=== PATIENT | female | born 1955 | race Caucasian/White ===

== ENCOUNTER 2020-10-04 09:31 | Outpatient (REF) | payer BC, SELFPAY ==
[2020-10-04 10:03] LABS: MANUAL DIFF FLAG NO
[2020-10-04 10:08] LABS: Basophils Percent Auto 0.8 % (0-2); Eosinophils Absolute Auto 0.2 X10*3/uL (0.0-0.4); Hematocrit 40.1 % (37-47); Hemoglobin 12.6 g/dl (12.0-16.0); Imm Gran Abs Auto 0.01 X10*3/uL (0.00-0.03); Imm Gran Pct Auto 0.2 % (0.0-0.4); Lymphocytes Absolute Auto 1.4 X10*3/uL (1.2-4.9); Lymphocytes Percent Auto 29.2 % (20-40); Mean Corpuscular HGB Conc 31.4 g/dl (31.0-35.0); Mean Corpuscular Hemoglobin 29.9 pg (27.0-33.0); Mean Platelet Volume 10.5 fL (9.4-12.3); Monocytes Absolute Auto 0.3 X10*3/uL (0.1-1.2); Monocytes Percent Auto 6.3 % (2-11); Neutrophils Percent Auto 60.5 % (45-73); Platelet Count 256 X10*3/uL (160-400); Red Blood Count 4.22 X10*6/uL (4.20-5.50); Red Cell Distribution Width 13.6 % (11.0-16.0); White Blood Count 4.9 X10*3/uL (4.8-10.8)
[2020-10-04 10:57] LABS: Alanine Aminotransferase 24 U/L (0-31); Albumin Level 4.6 g/dL (3.5-5.0); Alkaline Phosphatase 68 U/L (39-117); Anion Gap 11 (12-20); Aspartate Amino Transferase 21 U/L (5-31); Bilirubin Total 0.8 mg/dL (0.0-1.0); Blood Urea Nitrogen 12 mg/dL (9-16); Calcium 9.3 mg/dL (8.4-10.2); Carbon Dioxide 29 mmol/L (22-29); Chloride 106 mmol/L (96-108); Cholesterol 188 mg/dL; Estimated Glomerular Filt Rate > 60; Glucose Fasting 93 mg/dL (60-99); HDL Cholesterol 67 mg/dL; LDL Cholesterol Calculated 104 mg/dl; Potassium 4.3 mmol/l (3.3-5.1); Sodium 142 mmol/L (135-145); Total Protein 7.3 g/dL (6.5-8.0); Triglycerides 87 mg/dL
== END 2020-10-04 09:32 | disposition home or self-care (01) ==
LOC: HO.10HDL 09:31
PROVIDERS: Visit Provider Internal Medicine Medical Oncology
DX: Z00.00 Encounter for general adult medical examination without abnormal findings (principal)
CPT/HCPCS: 36415; 80053; 80061; 85025

== ENCOUNTER 2020-11-23 13:02 | Outpatient (REF) | payer BC, SELFPAY ==
--- NOTE | ~2020-11-23 | MM_ITS ---
EXAMINATION: MM SCREENING DIGITAL BREAST TOMOSYNTHESIS, BILATERAL CLINICAL INFORMATION: Screening. Asymptomatic. The lifetime risk of breast cancer based on the Tyrer-Cuzick Model is 14%. COMPARISON: Mammography: 11/11/2019, 09/24/2018 05/29/2012 TECHNIQUE: Digital breast tomosynthesis is performed in both the craniocaudal and mediolateral oblique views along with computer-aided detection (CAD). Synthesized 2D images are generated from the tomosynthesis. FINDINGS: The breasts are heterogeneously dense, which may obscure small masses (ACR BI-RADS breast composition Category c). The left breast is unremarkable. There is no interval mass or architectural abnormality. Neither breast shows abnormal calcifications. The bilateral axilla and skin contours are unremarkable. Right MLO view has 1 cm nodular asymmetric density anterior lower breast 4 cm from nipple. There is no correlate on CC view and this could represent summation artifact. Patient will be recalled for additional imaging. The remainder of the right breast is unremarkable. Parenchymal asymmetry posterior central right breast on CC view is stable from 2011. MM/MM tomosynthesis screening BI IMPRESSION: 1. Right: 1 cm nodular asymmetric density lower anterior breast on MLO view. 2. Left: No mammographic evidence of malignancy. ASSESSMENT: BI-RADS 0: Incomplete - Need Additional Imaging Evaluation RECOMMENDATION: 1. Additional views of the right breast (3-D spot MLO, 3-D ML). 2. Targeted ultrasound if warranted after review of the additional views. 3. Radiology department staff will contact the patient for additional imaging. This patient's information was entered into a reminder system with a target due date for their next mammogram.
--- NOTE | ~2020-11-23 | MM_ITS ---
EXAMINATION: BONE DENSITOMETRY CLINICAL INDICATION: Osteoporosis. COMPARISON: Baseline BD dated 10/09/2018. TECHNIQUE: Using a [employer] DXA System (software version: 13.1) manufactured by [employer], dual-energy x-ray absorptiometry was performed of the lumbar spine and left hip. The images are of good technical quality. Summary results are attached. FINDINGS: AP SPINE L1-L4: Current: BMD 1.126 g/cm2, Z-score 0.8, T-score -0.5, normal, 4.9% decrease from baseline (<5% change is not significant). Baseline: BMD 1.184 g/cm2. LEFT FEMUR, NECK: Current: BMD 1.198 g/cm2, Z-score 2.4, T-score 1.2, normal. Baseline: BMD 1.210 g/cm2. LEFT FEMUR, TOTAL: Current: BMD 1.236 g/cm2, Z-score 2.8, T-score 1.8, normal, 1.9% decrease from baseline (<5% change is not significant). Baseline: BMD 1.260 g/cm2. IDENTIFIED RISK FACTORS: Menopause. HISTORY OF FRACTURE: None listed. MEDICATIONS: None listed. MM/XR DEXA axial skeleton IMPRESSION: 1. DIAGNOSIS: Normal bone density based on the lowest T-score value of -0.5 in the lumbar spine applying World Health Organization criteria. 2. 10-YEAR FRACTURE RISK PREDICTION, FRAX: Major osteoporotic fracture (clinical spine, forearm, hip or shoulder) 5.5%. Hip fracture 0.1%. 3. Treatment Recommendations: NOF guidelines recommend consideration for treatment in postmenopausal women and men age 50 and older presenting with the following: -A hip or vertebral (clinical or morphometric) fracture. -T-score less than or equal to -2.5 at the femoral neck or spine after appropriate evaluation to exclude secondary causes. -Low bone mass at the hip or spine and a 10-year fracture probability by FRAX of greater than or equal to 3% for hip fracture or greater than or equal to 20% for major osteoporotic fracture based on the [place] adapted WHO algorithm. 4. Other Recommendations: All treatment decisions require clinical judgment and consideration of individual patient factors, including patient preferences, comorbidities, previous drug use, risk factors not captured in the FRAX model (e.g. frailty, falls, vitamin D deficiency, increased bone turnover, interval significant decline in bone density) and possible under or overestimation of fracture risk by FRAX. FUTURE SCAN RECOMMENDATION: People with diagnosed cases of osteoporosis or at high risk for fracture should have regular bone mineral density tests. For patients eligible for Medicare, routine testing is allowed once every 2 years. The testing frequency can be increased to one year for patients who have rapidly progressing disease, those who are receiving or discontinuing medical therapy to restore bone mass, or have additional risk factors.
== END 2020-11-23 13:03 | disposition home or self-care (01) ==
LOC: HO.MAMMO 13:02
PROVIDERS: PCP Internal Medicine Medical Oncology; Visit Provider Obstetrics & Gynecology
DX: Z13.820 Encounter for screening for osteoporosis (principal); Z78.0 Asymptomatic menopausal state; Z12.31 Encounter for screening mammogram for malignant neoplasm of breast
CPT/HCPCS: 77063; 77067; 77080

== ENCOUNTER 2020-11-28 15:47 | Outpatient (REF) | payer BC, SELFPAY | END 2020-11-28 15:48 | disposition home or self-care (01) | LOC: HO.MAMMO 15:47 | PROVIDERS: PCP Internal Medicine Medical Oncology; Visit Provider Obstetrics & Gynecology | DX: Z13.89 Encounter for screening for other disorder (principal) ==

== ENCOUNTER 2020-12-01 10:29 | Outpatient (REF) | payer BC, SELFPAY ==
--- NOTE | ~2020-12-01 | MM_ITS ---
EXAMINATION: MM DIAGNOSTIC DIGITAL BREAST TOMOSYNTHESIS, RIGHT Targeted right breast ultrasound. CLINICAL INFORMATION: Nodular density lower anterior right breast COMPARISON: Mammography: November 23, 2020 and studies dating back to May 18, 2010 TECHNIQUE: Digital breast tomosynthesis is performed. 2D images are generated from the tomosynthesis. The following views are obtained: 90 degree mediolateral view as well as spot compression mediolateral oblique view. FINDINGS: The breasts are heterogeneously dense, which may obscure small masses (ACR BI-RADS breast composition Category c). Supplementary views demonstrate the questioned nodular density have a similar appearance to multiple previous studies dating back to May 18, 2010. Spot compression view effaces about the questioned circumscribed density. Targeted right breast ultrasound did not demonstrate any abnormal cystic or solid mass. No region of abnormal distal sound shadowing identified. No edematous change within the breast tissue seen. Results are provided to the patient at time of visit by the technologist. MM/MM tomosynthesis added views R IMPRESSION: No specific mammographic or ultrasound evidence to suggest malignancy. ASSESSMENT: BI-RADS 1: Negative RECOMMENDATION: Routine annual mammography screening due in 12 months. This patient's information was entered into a reminder system with a target due date for their next mammogram.
--- NOTE | ~2020-12-01 | US_ITS ---
EXAMINATION: US DIAGNOSTIC ULTRASOUND BREAST, RIGHT CLINICAL INFORMATION: Nodular density. COMPARISON: December 01, 2020 and studies dating back to May 18, 2010.. TECHNIQUE: Ultrasound of the breast is performed with real-time buckner scale imaging and color Doppler. FINDINGS: Targeted right breast ultrasound did not demonstrate any abnormal cystic or solid mass. No region of abnormal distal sound shadowing identified. No edematous change within the breast tissue seen. Results are provided to the patient at time of visit by the technologist. US/US breast RT limited IMPRESSION: No specific mammographic or ultrasound evidence to suggest malignancy. ASSESSMENT: BI-RADS 1: Negative RECOMMENDATION: Routine annual mammography screening due in 12 months.
== END 2020-12-01 10:30 | disposition home or self-care (01) ==
LOC: HO.MAMMO 10:29
PROVIDERS: Visit Provider Obstetrics & Gynecology
DX: R92.2 Inconclusive mammogram (principal)
CPT/HCPCS: 76642; 77061; 77065

== ENCOUNTER → 2020-12-27 14:50 | Outpatient (BNVA) | payer BC, SELFPAY | PROVIDERS: Visit Provider Obstetrics & Gynecology ==

== ENCOUNTER 2021-10-16 10:13 | Outpatient (REF) | payer BC, SELFPAY ==
[2021-10-16 10:47] LABS: MANUAL DIFF FLAG NO
[2021-10-16 11:02] LABS: Basophils Percent Auto 0.8 % (0-2); Eosinophils Absolute Auto 0.1 X10*3/uL (0.0-0.4); Eosinophils Percent Auto 2.8 % (0-4); Hematocrit 41.1 % (37.0-47.0); Hemoglobin 13.1 g/dl (12.0-16.0); Imm Gran Abs Auto 0.01 X10*3/uL (0.00-0.03); Imm Gran Pct Auto 0.2 % (0.0-0.4); Lymphocytes Absolute Auto 1.6 X10*3/uL (1.2-4.9); Lymphocytes Percent Auto 32.5 % (20-40); Mean Corpuscular HGB Conc 31.9 g/dl (31.0-35.0); Mean Corpuscular Hemoglobin 30.2 pg (27.0-33.0); Mean Corpuscular Volume 94.7 fL (80.0-98.0); Mean Platelet Volume 10.1 fL (9.4-12.3); Monocytes Absolute Auto 0.3 X10*3/uL (0.1-1.2); Monocytes Percent Auto 5.3 % (2-11); Neutrophils Absolute Auto 2.9 x10*3/uL (2.0-8.3); Neutrophils Percent Auto 58.4 % (45-73); Platelet Count 222 X10*3/uL (160-400); Red Blood Count 4.34 X10*6/uL (4.20-5.50); Red Cell Distribution Width 14.3 % (11.0-16.0); White Blood Count 4.9 X10*3/uL (4.8-10.8)
[2021-10-16 11:37] LABS: Alanine Aminotransferase 17 U/L (0-31); Albumin Level 4.3 g/dL (3.5-5.0); Alkaline Phosphatase 67 U/L (39-117); Anion Gap 11 (12-20); Aspartate Amino Transferase 21 U/L (5-31); Bilirubin Total 0.8 mg/dL (0.0-1.0); Blood Urea Nitrogen 16 mg/dL (9-16); Calcium 9.6 mg/dL (8.4-10.2); Carbon Dioxide 26 mmol/L (22-29); Chloride 109 mmol/L (96-108); Cholesterol 187 mg/dL; Estimated Glomerular Filt Rate > 60; Glucose Fasting 83 mg/dL (60-99); HDL Cholesterol 60 mg/dL; LDL Cholesterol Calculated 116 mg/dl; Potassium 4.2 mmol/L (3.3-5.1); Sodium 142 mmol/L (135-145); Total Protein 7.3 g/dL (6.5-8.0); Triglycerides 55 mg/dL
== END 2021-10-16 10:14 | disposition home or self-care (01) ==
LOC: HO.LAB 10:13
PROVIDERS: PCP Internal Medicine Medical Oncology; Visit Provider Internal Medicine Medical Oncology
DX: Z00.00 Encounter for general adult medical examination without abnormal findings (principal); E66.3 Overweight
CPT/HCPCS: 36415; 80053; 80061; 85025

== ENCOUNTER 2021-11-24 13:07 | Outpatient (REF) | payer BC, SELFPAY ==
--- NOTE | ~2021-11-24 | MM_ITS ---
EXAMINATION: MM SCREENING DIGITAL BREAST TOMOSYNTHESIS, BILATERAL CLINICAL INFORMATION: Screening. Asymptomatic. The lifetime risk of breast cancer based on the Tyrer-Cuzick Model is 15%. COMPARISON: Mammography: 12/01/2020, 11/23/2020, 11/11/2019, 09/24/2018, 05/29/2012, ultrasound right breast 12/01/2020 TECHNIQUE: Digital breast tomosynthesis is performed in both the craniocaudal and mediolateral oblique views along with computer-aided detection (CAD). Synthesized 2D images are generated from the tomosynthesis. FINDINGS: The breasts are heterogeneously dense, which may obscure small masses (ACR BI-RADS breast composition Category c). There are no significant masses, abnormal calcifications, or other abnormalities. Parenchymal pattern is similar to prior studies. Scattered bilateral asymmetries are stable. There is no developing density or architectural abnormality. The axilla and skin contours are unremarkable. No significant changes. MM/MM tomosynthesis screening BI IMPRESSION: No significant changes from prior studies. ASSESSMENT: BI-RADS 2: Benign RECOMMENDATION: Routine annual mammography screening. This patient's information was entered into a reminder system with a target due date for their next mammogram.
== END 2021-11-24 13:08 | disposition home or self-care (01) ==
LOC: HO.MAMMO 13:07
PROVIDERS: PCP Internal Medicine Medical Oncology; Visit Provider Internal Medicine Medical Oncology
DX: Z12.31 Encounter for screening mammogram for malignant neoplasm of breast (principal)
CPT/HCPCS: 77063; 77067

== ENCOUNTER → 2022-02-09 09:45 | Outpatient (BNVA) | payer BC, SELFPAY | PROVIDERS: PCP Internal Medicine Medical Oncology; Visit Provider Advanced Practice Midwife | DX: Z01.419 Encounter for gynecological examination (general) (routine) without abnormal findings (principal) ==

== ENCOUNTER 2022-03-30 09:01 | Day surgery (SDC) | payer BC, SELFPAY ==
[2022-03-26 15:44] VITALS: BMI 26.1
--- NOTE | 2022-03-29 13:55 | HO.ANESPROP2 ---
Documented by User: Sandra Elliott NP 03/29/22 13:56 HPI - Anesthesia Eval Consult details Narrative: 66yo F for Colonoscopy PMFSH Active Problems Active Problems: All Active Problems (Updated 03/26/22 @ 15:36 by Willa Oropeza, LYRIC) Osteopenia (Acute) Past Medical History Medical History Heart burn Seasonal allergies Family History Family History Father Heart attack Mother Breast cancer Uterine cancer Maternal Aunt Breast cancer Maternal Aunt Colon cancer Surgical History Surgical History History of ERCP Hx of section Hx of cholecystectomy Hx of colonoscopy Hx of dilation and curettage Social History Social History Household Members: Spouse Housing: House Alcohol intake: never Patient Tobacco Use Status: Former Tobacco user Quit Date: 34 years ago Tobacco use type: Cigarette Use of substances other than those prescribed or required for medical reasons: No Are you DNR?: No Advance Directives: No Advance Directives Information Provided: Yes Sexual orientation: Straight/Heterosexual Gender identity: Female Meds Allergies Allergy/AdvReac Type Severity Reaction Status Date / Time amoxicillin [Amoxicillin] Allergy Intermediate HIVES Verified 03/26/22 15:37 Sulfa (Sulfonamide Allergy Unknown RASH, Verified 03/26/22 15:37 Antibiotics) fever, rash Home Medications Medication Instructions Recorded Confirmed Last Taken Type multivitamin 1 tab PO DAILY 02/09/22 03/26/22 Unknown History Exam Exam Date and Time: March 29, 2022 1355 Height,Weight and Vital Signs: Height 5 ft 5 in Weight 71.214 kg Pertinent Lab Results Pertinent Lab Results: Laboratory Tests 10/16/21 10/16/21 10:45 10:45 WBC 4.9 Hgb 13.1 Hct 41.1 Plt Count 222 Sodium 142 Potassium 4.2 Chloride 109 H Carbon Dioxide 26 BUN 16 Creatinine 0.76 Assessment and Plan Assessment Anesthesia Assessment: Chart Reviewed Documented by User: Nayan Keith MD 03/30/22 10:57 PMF Past Medical History Medical History Heart burn Seasonal allergies Family History Family History Father Heart attack Mother Breast cancer Uterine cancer Maternal Aunt Breast cancer Maternal Aunt Colon cancer Family history of problems with anesthesia: No Surgical History Surgical History History of ERCP Hx of section Hx of cholecystectomy Hx of colonoscopy Hx of dilation and curettage History of Problems with Anesthesia: No Social History Social History Household Members: Spouse Housing: House Alcohol intake: never Patient Tobacco Use Status: Former Tobacco user Quit Date: 34 years ago Tobacco use type: Cigarette Use of substances other than those prescribed or required for medical reasons: No Are you DNR?: No Advance Directives: No Advance Directives Information Provided: Yes Sexual orientation: Straight/Heterosexual Gender identity: Female Meds Allergies Allergy/AdvReac Type Severity Reaction Status Date / Time amoxicillin [Amoxicillin] Allergy Intermediate HIVES Verified 03/26/22 15:37 Sulfa (Sulfonamide Allergy Unknown RASH, Verified 03/26/22 15:37 Antibiotics) fever, rash Home Medications Medication Instructions Recorded Confirmed Last Taken Type multivitamin 1 tab PO DAILY 02/09/22 03/26/22 Unknown History Exam Airway Mallampati Class: II TM Dist: >3cm Neck ROM: Full Loose/Missing/Broken Teeth: No Heart: rrr Lungs: clear Assessment and Plan Final Anesthetic Review Family History of Problems with Anesthesia: No History of Problems with Anesthesia: No NPO: Yes ASA Class: II Final Preanesthetic Review: No Changes in Pt Med Stat, Consent Obtained/Reviewed and Anes Risks/Benef Reviewed Procedure Risk: Low Anesthetic Plan Anesthetic Plan: MAC: Disposition: Standard PACU
[2022-03-30 09:49] VITALS: BMI 25.0
[2022-03-30 10:07] VITALS: BP 151/78; PULSE 74; RESP 17; TEMP 36.8; O2SAT 100
[2022-03-30] MEDS: Lactated Ringers 1,000 ML 100 ML IVCONT (10:21)
[2022-03-30 11:53] VITALS: BP 128/64; PULSE 67; RESP 18; TEMP 36.9; O2SAT 99
--- NOTE | 2022-03-30 11:53 | P.BOP_ITS ---
Brief Operative Note Date of Service: 03/30/22 Pre-op diagnosis: Screening Post-op diagnosis: other (Diverticulosis) Procedure: Colonoscopy to the cecum and TI Surgeon: Yung Chavez Anesthesia: MAC Was an Senior Living Advisor used for this Procedure?: No Estimated blood loss (mL): 0 Pathology: none sent Condition: stable Disposition: PACU
[2022-03-30 12:08] VITALS: BP 141/65; PULSE 61; RESP 18; TEMP 37; O2SAT 98
--- NOTE | 2022-04-09 16:29 | OP_ITS ---
SURGEON: Yung Chavez MD INDICATIONS: The patient presents for evaluation of colorectal cancer screening. Full consent obtained for this, including risks of bleeding and perforation. PREOPERATIVE DIAGNOSIS: Colorectal cancer screening. POSTOPERATIVE DIAGNOSIS: Colorectal cancer screening. Mild sigmoid diverticulosis, small internal hemorrhoids. PROCEDURE PERFORMED: ESTIMATED BLOOD LOSS: COMPLICATIONS: ANESTHESIA: Monitored anesthesia care. ASSISTANTS: SPECIMENS: PROCEDURES: Colonoscopy to cecum and terminal ileum. DESCRIPTION OF PROCEDURE: The patient was placed in the left lateral decubitus position. The digital rectal exam revealed no abnormalities. The Olympus video pediatric colonoscope was entered into the rectum and advanced easily to the cecum. Once in the cecum, I did identify normal-appearing cecal pouch with appendiceal orifice and a normal-appearing ileocecal valve. The terminal ileum was cannulated and appeared normal. Scope was withdrawn back in the colon. The entire cecum and ileocecal valve appeared normal. The scope was slowly withdrawn assessing all mucosal surfaces carefully. Preparation was excellent. I did not visualize any sign of polyps, colitis, nor angiodysplasia. There was a mild amount of sigmoid diverticulosis. In the rectum, scope was retroflexed visualizing small internal hemorrhoids, but no other pathology. The rectal mucosa appeared normal. Scope was straightened and withdrawn from the patient. She tolerated the procedure well and was returned to recovery area in stable condition. IMPRESSION: 1. Mild sigmoid diverticulosis. 2. Internal hemorrhoids. PLAN: Given the negative exam and no first-degree relatives with colorectal cancer, I recommended a followup colonoscopy in 10 years for further screening. She will otherwise see me on a p.r.n. basis. MD NOHEMY Wheeler/KODYL / [id number]
== END 2022-03-30 12:51 | disposition home or self-care (01) ==
PROVIDERS: PCP Internal Medicine Medical Oncology; Visit Provider Internal Medicine
PROC: 0DJD8ZZ Inspection of Lower Intestinal Tract, Via Natural or Artificial Opening Endoscopic (ICD-10-PCS; CPT 45378; principal; 2022-03-30 10:20)
DX: Z12.11 Encounter for screening for malignant neoplasm of colon (principal); K57.30 Diverticulosis of large intestine without perforation or abscess without bleeding; K64.8 Other hemorrhoids; Z90.49 Acquired absence of other specified parts of digestive tract; Z88.2 Allergy status to sulfonamides; Z87.891 Personal history of nicotine dependence
CPT/HCPCS: 45378

== ENCOUNTER 2022-10-16 09:51 | Outpatient (REF) | payer BC, SELFPAY ==
[2022-10-16 10:31] LABS: MANUAL DIFF FLAG NO
[2022-10-16 10:34] LABS: Basophils Percent Auto 0.8 % (0-2); Eosinophils Absolute Auto 0.2 X10*3/uL (0.0-0.4); Eosinophils Percent Auto 3.5 % (0-4); Hematocrit 40.9 % (37.0-47.0); Hemoglobin 13.5 g/dl (12.0-16.0); Imm Gran Abs Auto 0.02 X10*3/uL (0.00-0.03); Imm Gran Pct Auto 0.4 % (0.0-0.4); Lymphocytes Absolute Auto 1.9 X10*3/uL (1.2-4.9); Lymphocytes Percent Auto 37.4 % (20-40); Mean Corpuscular Hemoglobin 31.2 pg (27.0-33.0); Mean Corpuscular Volume 94.5 fL (80.0-98.0); Mean Platelet Volume 10.3 fL (9.4-12.3); Monocytes Absolute Auto 0.3 X10*3/uL (0.1-1.2); Monocytes Percent Auto 5.6 % (2-11); Neutrophils Absolute Auto 2.7 x10*3/uL (2.0-8.3); Neutrophils Percent Auto 52.3 % (45-73); Platelet Count 254 X10*3/uL (160-400); Red Blood Count 4.33 X10*6/uL (4.20-5.50); Red Cell Distribution Width 13.8 % (11.0-16.0); White Blood Count 5.1 X10*3/uL (4.8-10.8)
[2022-10-16 12:20] LABS: Alanine Aminotransferase 20 U/L (0-31); Albumin Level 4.3 g/dL (3.5-5.0); Alkaline Phosphatase 66 U/L (39-117); Anion Gap 14 (12-20); Aspartate Amino Transferase 21 U/L (5-31); Bilirubin Total 1.2 mg/dL (0.0-1.0); Blood Urea Nitrogen 14 mg/dL (9-16); Calcium 9.2 mg/dL (8.4-10.2); Carbon Dioxide 23 mmol/L (22-29); Chloride 108 mmol/L (96-108); Cholesterol 198 mg/dL; Estimated Glomerular Filt Rate > 60; Glucose Fasting 88 mg/dL (60-99); HDL Cholesterol 60 mg/dL; LDL Cholesterol Calculated 118 mg/dl; Sodium 141 mmol/L (135-145); Triglycerides 101 mg/dL
== END 2022-10-16 09:52 | disposition home or self-care (01) ==
LOC: HO.10HDL 09:51
PROVIDERS: Visit Provider Internal Medicine Medical Oncology
DX: Z00.00 Encounter for general adult medical examination without abnormal findings (principal); E66.3 Overweight
CPT/HCPCS: 36415; 80053; 80061; 85025

== ENCOUNTER 2022-12-21 10:12 | Outpatient (REF) | payer MEDICARE, SELFPAY ==
--- NOTE | ~2022-12-21 | MM_ITS ---
EXAMINATION: MM SCREENING DIGITAL BREAST TOMOSYNTHESIS, BILATERAL CLINICAL INFORMATION: Screening. Asymptomatic. The lifetime risk of breast cancer based on the Tyrer-Cuzick Model is 8%. COMPARISON: Mammography: 11/24/2021, 12/01/2020, 11/23/2020, 11/11/2019; ultrasound right breast 12/01/2020. TECHNIQUE: Digital breast tomosynthesis is performed in both the craniocaudal and mediolateral oblique views along with computer-aided detection (CAD). Synthesized 2D images are generated from the tomosynthesis. FINDINGS: The breasts are heterogeneously dense, which may obscure small masses (ACR BI-RADS breast composition Category c). There are no significant masses, abnormal calcifications, or other abnormalities. Parenchymal pattern is similar to prior exams and there is no developing density or architectural abnormality. The axilla are unremarkable. The skin contours are smooth. No significant changes from prior exams. MM/MM tomosynthesis screening BI IMPRESSION: No mammographic evidence of malignancy. ASSESSMENT: BI-RADS 1: Negative RECOMMENDATION: Routine annual mammography screening. This patient's information was entered into a reminder system with a target due date for their next mammogram.
== END 2022-12-21 10:13 | disposition home or self-care (01) ==
LOC: HO.MAMMO 10:12
PROVIDERS: PCP Internal Medicine Medical Oncology; Visit Provider Internal Medicine Medical Oncology
DX: Z12.31 Encounter for screening mammogram for malignant neoplasm of breast (principal)
CPT/HCPCS: 77063; 77067

== ENCOUNTER 2023-02-28 11:32 | Outpatient (REF) | payer MEDICARE, SELFPAY ==
[2023-03-05 10:13] LABS: HPV mRNA E6/E7 rflx Not Detected (Not Detected)
== END 2023-02-28 11:33 | disposition home or self-care (01) ==
LOC: HO.LNP 11:32
PROVIDERS: PCP Internal Medicine Medical Oncology; Visit Provider Advanced Practice Midwife
DX: Z01.419 Encounter for gynecological examination (general) (routine) without abnormal findings (principal); N95.1 Menopausal and female climacteric states; N89.8 Other specified noninflammatory disorders of vagina
CPT/HCPCS: 87624; 88142; G0101

== ENCOUNTER 2023-10-21 09:39 | Outpatient (REF) | payer MEDICARE, SELFPAY ==
[2023-10-21 12:03] LABS: MANUAL DIFF FLAG NO
[2023-10-21 12:16] LABS: Basophils Percent Auto 0.7 % (0-2); Eosinophils Absolute Auto 0.1 X10*3/uL (0.0-0.4); Eosinophils Percent Auto 2.4 % (0-4); Hemoglobin 13.9 g/dl (12.0-16.0); Imm Gran Abs Auto 0.02 X10*3/uL (0.00-0.03); Imm Gran Pct Auto 0.3 % (0.0-0.4); Lymphocytes Absolute Auto 2.3 X10*3/uL (1.2-4.9); Lymphocytes Percent Auto 38.4 % (20-40); Mean Corpuscular HGB Conc 33.1 g/dl (31.0-35.0); Mean Corpuscular Hemoglobin 31.7 pg (27.0-33.0); Mean Corpuscular Volume 95.9 fL (80.0-98.0); Monocytes Absolute Auto 0.4 X10*3/uL (0.1-1.2); Monocytes Percent Auto 5.9 % (2-11); Neutrophils Absolute Auto 3.1 x10*3/uL (2.0-8.3); Neutrophils Percent Auto 52.3 % (45-73); Platelet Count 266 X10*3/uL (160-400); Red Blood Count 4.38 X10*6/uL (4.20-5.50); Red Cell Distribution Width 13.6 % (11.0-16.0); White Blood Count 5.9 X10*3/uL (4.8-10.8)
[2023-10-21 12:30] LABS: Alanine Aminotransferase 23 U/L (0-31); Albumin Level 4.4 g/dL (3.5-5.0); Alkaline Phosphatase 63 U/L (39-117); Anion Gap 12 (12-20); Aspartate Amino Transferase 23 U/L (5-31); Bilirubin Total 1.1 mg/dL (0.0-1.0); Blood Urea Nitrogen 12 mg/dL (9-16); Calcium 9.5 mg/dL (8.4-10.2); Carbon Dioxide 28 mmol/L (22-29); Chloride 106 mmol/L (96-108); Cholesterol 192 mg/dL (<200); Estimated Glomerular Filt Rate > 60; Glucose Fasting 93 mg/dL (60-99); HDL Cholesterol 63 mg/dL (>40); LDL Cholesterol Calculated 113 mg/dL (<100); Potassium 3.9 mmol/L (3.3-5.1); Sodium 142 mmol/L (135-145); Total Protein 7.3 g/dL (6.5-8.0); Triglycerides 84 mg/dL (<150)
== END 2023-10-21 09:40 | disposition home or self-care (01) ==
LOC: HO.10HDL 09:39
PROVIDERS: Visit Provider Internal Medicine Medical Oncology
DX: E66.3 Overweight (principal)
CPT/HCPCS: 36415; 80053; 80061; 85025

== ENCOUNTER 2023-11-15 10:00 | Outpatient (AMB) | payer MEDICARE, SELFPAY ==
--- NOTE | 2023-11-15 10:11 | A.OFFVIS_ITS ---
Intake Vital Signs 11/15/23 10:17 Height 5 ft 5 in Weight 158 lb BMI 26.3 Intake Visit Reasons: New Pt - Right Knee Pain Intake Note: Tory mercado 67 year old female presents today as a new patient for an evaluation of right knee pain. Patient reports pain present for a while, states previously seen before the pandemic and was referred to PT. Currently intermittent pain that will wake her up middle of night. Finds relief with massaging of knee area. States her pain is tolerable, however concerned of why she is having this discomfort. Allergies amoxicillin [Amoxicillin] Allergy (Intermediate, Verified 11/15/23 10:21) HIVES Sulfa (Sulfonamide Antibiotics) Allergy (Unknown, Verified 11/15/23 10:21) RASH, fever, rash HPI New Pt - Right Knee Pain HPI Details 67-year-old female who presents to the [facility] today for evaluation of right knee pain. She was previously seen for her pain where she was referred to our office. She currently states she has discomfort and tolerable intermittent pain in her knee which wakes her up in the middle of the night. Her pain is aggravated with moving up and down a steep hill. She finds relief with knee massages. [facility] Medical History Heart burn Seasonal allergies Surgical History History of ERCP Hx of colonoscopy Hx of dilation and curettage Hx of section Hx of cholecystectomy Family History Father Heart attack Mother Breast cancer Uterine cancer Maternal Aunt Breast cancer Maternal Aunt Colon cancer Social History Household Members: Spouse Housing: House Alcohol intake: never Patient Tobacco Use Status: Former Tobacco user Quit Date: 34 years ago Tobacco use type: Cigarette Sexual orientation: Straight/Heterosexual Gender identity: Female Review of Systems Const All systems reviewed & are unremarkable except as noted in HPI and below Physical Exam Vital Signs: BMI result Body Mass Index 26.3 Const General: cooperative, healthy appearing, comfortable, no acute distress, well developed and alert Orientation/consciousness: patient oriented x3 HEENT Head: Yes normal to inspection, Yes normocephalic and Yes atraumatic Eyes General: appearance normal, both eyes and all related structures Resp Effort & Inspection: normal respiratory effort and able to speak in complete sentences Cardio Rate: regular rate Peripheral pulses: Peripheral pulses 2+ throughout GI Palpation (GI): Soft to palpation Skin Lesions: no lesions Rashes: no rashes Neuro General: patient oriented x3 Extrem Other: Right knee: Skin intact, no erythema or joint effusion. Tenderness along the medial and lateral joint line. Full ROM with crepitus. Negative Gustavo?s. No ligamentous laxity. NVI. Results Reviewed Results Reviewed: Xrays were obtained in the office today and personally reviewed by me of the right knee show medial compartment oa Assessment & Plan Assessment & Plan (1) Patellofemoral arthralgia of right knee: Code(s): M25.561 - Pain in right knee (2) Osteoarthritis of right knee: Code(s): M17.11 - Unilateral primary osteoarthritis, right knee Qualifiers: Osteoarthritis type: primary Qualified Code(s): M17.11 - Unilateral primary osteoarthritis, right knee Plan We discussed options which include PT, NSAIDs and injections. The patient will defer on the injection today and proceed with PT and NSAIDs. If symptoms persist, the patient will contact me for an injection, otherwise, PRN. Orders: Orders XR knee standing BI Today M25.561 - Pain in right knee, M25.562 - Pain in left knee PT Evaluation and Treatment Today M17.11 - Unilateral primary osteoarthritis, right knee, M25.561 - Pain in right knee XR knee RT 2V Today M25.569 - Pain in unspecified knee Patient Instructions: Scribed for Rojas Martinez PA-C, by Scottie Villanueva front office medical assistant, on 11/15/2023 at 10:00 AM EST. I, Rojas Martinez PA-C, have personally reviewed and agree with the information entered by the scribe. Coding Level of Care Code New Pt Level 3 (41022) Diagnoses Patellofemoral arthralgia of right knee M25.561 Primary osteoarthritis of right knee M17.11 Osteoarthritis type: primary
[2023-11-15 10:17] VITALS: BMI 26.3
== END 2023-11-15 10:32 | disposition home or self-care (01) ==
PROVIDERS: PCP Internal Medicine Medical Oncology; Visit Provider Physician Assistant
DX: M25.561 Pain in right knee (principal); M17.11 Unilateral primary osteoarthritis, right knee
CPT/HCPCS: 99203

== ENCOUNTER 2023-11-15 16:07 | Outpatient (REF) | payer MEDICARE, SELFPAY ==
--- NOTE | ~2023-11-15 | XR_ITS ---
EXAMINATION: XR KNEE AP STANDING, BILATERAL XR KNEE, RIGHT CLINICAL INFORMATION: Pain in right knee. COMPARISON: 11/04/2019 AP view of bilateral knees, four views left knee. TECHNIQUE: AP standing view of bilateral knees. Lateral and sunrise views of the right knee. FINDINGS: LEFT KNEE: Moderate medial joint space narrowing. Small medial and lateral marginal osteophytes. RIGHT KNEE: No significant joint effusion. Small tricompartmental osteophytes. Moderate to marked medial joint space narrowing. XR/XR knee RT 2V IMPRESSION: Degenerative changes in the bilateral knees, right greater than left.
--- NOTE | ~2023-11-15 | XR_ITS ---
EXAMINATION: XR KNEE AP STANDING, BILATERAL XR KNEE, RIGHT CLINICAL INFORMATION: Pain in right knee. COMPARISON: 11/04/2019 AP view of bilateral knees, four views left knee. TECHNIQUE: AP standing view of bilateral knees. Lateral and sunrise views of the right knee. FINDINGS: LEFT KNEE: Moderate medial joint space narrowing. Small medial and lateral marginal osteophytes. RIGHT KNEE: No significant joint effusion. Small tricompartmental osteophytes. Moderate to marked medial joint space narrowing. XR/XR knee standing BI IMPRESSION: Degenerative changes in the bilateral knees, right greater than left.
== END 2023-11-15 16:08 | disposition home or self-care (01) ==
LOC: HO.HOSX 16:07
PROVIDERS: Visit Provider Physician Assistant
DX: M17.11 Unilateral primary osteoarthritis, right knee (principal); M25.562 Pain in left knee
CPT/HCPCS: 73560; 73565; 99202

== ENCOUNTER 2023-12-24 10:40 | Outpatient (REF) | payer MEDICARE, SELFPAY ==
--- NOTE | ~2023-12-24 | MM_ITS ---
EXAMINATION: MM SCREENING DIGITAL BREAST TOMOSYNTHESIS, BILATERAL CLINICAL INFORMATION: Screening. Asymptomatic. COMPARISON: Mammography: This study is compared with prior exams dating back to 2019. TECHNIQUE: Digital breast tomosynthesis is performed in both the craniocaudal and mediolateral oblique views along with computer-aided detection (CAD). Synthesized 2D images are generated from the tomosynthesis. FINDINGS: The breasts are heterogeneously dense, which may obscure small masses (ACR BI-RADS breast composition Category c). In the central portion of the left breast, there is a focal asymmetry which warrants additional mammographic and targeted sonographic imaging. In the right breast, there are no significant masses, abnormal calcifications, or other abnormalities. MM/MM tomosynthesis screening BI IMPRESSION: Focal asymmetry of the left breast warrants additional mammographic and targeted sonographic imaging. No mammographic signs of malignancy right breast. ASSESSMENT: BI-RADS BI-RADS 0 - Incomplete: Needs additional Imaging. RECOMMENDATION: 1. Additional views of the left breast 2. Targeted ultrasound if warranted after review of the additional views. 3. Radiology department staff will contact the patient for additional imaging. Additional Imaging required This examination should not preclude the clinical evaluation of a suspicious palpable abnormality. This patient's information was entered into a reminder system with a target due date for their next mammogram.
== END 2023-12-24 10:41 | disposition home or self-care (01) ==
LOC: HO.MAMMO 10:40
PROVIDERS: PCP Internal Medicine Medical Oncology; Visit Provider Internal Medicine Medical Oncology
DX: Z12.31 Encounter for screening mammogram for malignant neoplasm of breast (principal)
CPT/HCPCS: 77063; 77067

== ENCOUNTER → 2023-12-24 10:45 | Outpatient (BNV) | payer MEDICARE, SELFPAY | PROVIDERS: PCP Internal Medicine Medical Oncology; Visit Provider Radiology Diagnostic Radiology | DX: Z12.31 Encounter for screening mammogram for malignant neoplasm of breast (principal) | CPT/HCPCS: 77063; 77067 ==

== ENCOUNTER 2024-01-08 13:00 | Outpatient (RCR) | payer MEDICARE, SELFPAY ==
--- NOTE | 2023-12-06 16:17 | MHC.PT.EP ---
[facility] [place] [facility] [place] [facility] [place] Office [address] [phone] F: [phone] F: [phone] F: [phone] F: [phone] Physical Therapy Plan of Care Date of Evaluation: 12/06/23 Date of Surgery: Diagnosis: RIGHT knee pain, knee osteoarthritis Assessment: Patient is a pleasant 67 y.o. female who is referred to PT by Rojas Martinez PA-C with Dx of RIGHT knee pain and osteoarthritis. Medial knee OA moderate confirmed on x-ray imaging. Patient impairments include pain, slightly limited ROM, weakness in hip and knee and antalgic gait. Patient current functional limitations are walking down hills, descending stairs, getting up/down from floor, kneeling, gardening. Patient will benefit from skilled PT to address aforementioned impairments and functional limitations to meet established goals. Frequency and Duration: The patient will be seen 2x/week for 4 weeks Short Term Goals: 2 weeks Patient demonstrates consistency and independence with HEP to self manage symptoms. Radiology Ct Technologist Goals: 4 weeks Patient presents with increased R knee extension 5/5 to be able to descend stairs reciprocally. Patient presents with increased R hip glute med strength 5/5 to be able to improve ability to get on/off floor. Treatment Plan: Modalities to reduce pain, spasms and effusion. Manual therapy to restore motion and function. Therapeutic exercise to improve strength and flexibility. Neuromuscular re-education for posture and balance. Therapeutic activities to return to functional activities of daily living. Electronically signed by: Laly Grey, PT, DPT Please sign and return to therapist. Thank you for your referral.
--- NOTE | 2024-01-08 14:40 | MHC.PT.DC ---
[facility] [place] [facility] [place] [facility] [place] [facility] [address] [facility] [address] [phone] F: [phone] F: [phone] F: [phone] F: [phone] Physical Therapy Discharge Report Diagnosis: RIGHT knee pain, knee osteoarthritis Date of Surgery: Date of Evaluation: 12/06/23 Date of Discharge: 01/08/24 Treatments to Date: 7 Cancellations to Date: No Shows to Date: Discharge Status: Improved Function Independent with HEP Discharge Summary: Tory reports reduction in her familiar R knee sxs since starting physical therapy. She shows improved strength and endurance in R LE. She notes functionally seeing progress with improved walking outside on hills and uneven surfaces. 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 Electronically signed by: Laly Grey, PT, DPT Please sign and return to therapist. Thank you for your referral.
== END 2024-01-08 14:42 | disposition home or self-care (01) ==
LOC: HO.PT 13:00
PROVIDERS: PCP Internal Medicine Medical Oncology; Visit Provider Physician Assistant
DX: M17.11 Unilateral primary osteoarthritis, right knee (principal)
CPT/HCPCS: 97110; 97112; 97161; 97530

== ENCOUNTER 2024-01-22 13:27 | Outpatient (REF) | payer MEDICARE, SELFPAY ==
--- NOTE | ~2024-01-22 | US_ITS ---
EXAMINATION: MM DIAGNOSTIC DIGITAL BREAST TOMOSYNTHESIS, LEFT US BREAST LIMITED, LEFT MAMMOGRAPHY: CLINICAL INFORMATION: Diagnostic follow-up for focal asymmetry in the central portion of the left breast seen on screening exam. COMPARISON: Mammography: 12/24/2023, 12/21/2022, 11/24/2021, 12/01/2020, and dating back to 2018. TECHNIQUE: Digital breast tomosynthesis is performed in the following views: 3-D full-field digital left mediolateral view, as well as 3-D digital spot compression left cc view, and left MLO view x2. Computer-aided diagnosis was used for this study. This was followed by targeted left breast ultrasound. FINDINGS: The breasts are heterogeneously dense, which may obscure small masses (ACR BI-RADS breast composition Category c). Diagnostic views demonstrate persistence of the focal asymmetry in the central left breast most prominent on the CC projection centrally, along the posterior parenchymal cone. In addition there is mild parenchymal asymmetry in the ML view in the anterior superior and posterior superior regions. In comparison with prior examinations dating back to 2018, these areas are completely unchanged, have been mentioned in prior reports as being stable, and appear to represent normal heterogeneously dense parenchymal tissue for this patient. There is otherwise no evidence of developing mass, suspicious microcalcifications, or persisting region of definitive architectural distortion. The parenchymal pattern of the left breast is entirely unchanged from prior exams. ULTRASOUND: CLINICAL INFORMATION: Evaluate focal asymmetry central portion left breast most notable on the CC projection. COMPARISON: No prior left breast ultrasound. TECHNIQUE: Targeted sonographic evaluation was performed using a high frequency linear transducer. Attention was focused on the left breast 7-11 o'clock axis, to include the area of concern. Selected archived documentation. FINDINGS: LEFT BREAST: -There is heterogeneously dense fibroglandular tissue present. There is no mass, cystic abnormality, abnormal shadowing, or architectural distortion identified. There is no ultrasound correlate to the focal asymmetric density in the left breast centrally, and superiorly. US/US breast LT limited mamm only IMPRESSION: -There are no findings suspicious for malignancy in either breast. -In comparison with prior examinations dating back to 2018, above-mentioned areas of focal asymmetric density are completely unchanged, have been mentioned in prior reports as being stable, and appear to represent normal heterogeneously dense parenchymal tissue for this patient. No ultrasound correlate could be identified. -Recommend this patient return to routine annual screening. OVERALL ASSESSMENT: Mammography: BI-RADS 2 - Benign Findings Ultrasound: BI-RADS 2 - Benign Findings RECOMMENDATION: 1 year F/U Results were provided to the patient at time of visit by the technologist. This patient's information was entered into a reminder system with a target due date for their next mammogram.
== END 2024-01-22 13:28 | disposition home or self-care (01) ==
LOC: HO.MAMMO 13:27
PROVIDERS: PCP Internal Medicine Medical Oncology; Visit Provider Internal Medicine Medical Oncology
DX: N64.89 Other specified disorders of breast (principal)
CPT/HCPCS: 76642; 77061; 77065

== ENCOUNTER → 2024-01-22 13:30 | Outpatient (BNV) | payer MEDICARE, SELFPAY | PROVIDERS: PCP Internal Medicine Medical Oncology; Visit Provider Radiology Diagnostic Radiology | DX: R92.8 Other abnormal and inconclusive findings on diagnostic imaging of breast (principal) | CPT/HCPCS: 76642; 77065; G0279 ==

== ENCOUNTER 2024-03-04 10:00 | Outpatient (AMB) | payer MEDICARE, SELFPAY ==
--- NOTE | 2024-03-04 10:08 | MHC.OFFVIS ---
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 She is doing well with no concerns. Attempting to eat a healthy diet, and stays active with exercise-walks her dog. Currently sexually active w/. Denies any vaginal dryness or irritation. Uses a lubricant. STI testing offered; she declined. Last pap smear; 2022. Last mammogram; 2023. Colonoscopy is UTD. Denies any family history of ovarian or colon cancer. FH breast cancer. PFS Medical History Seasonal allergies Heart burn Surgical History History of ERCP Hx of colonoscopy Hx of dilation and curettage Hx of section Hx of cholecystectomy Family History Father Heart attack Mother Breast cancer, Onset Age: 85 Uterine cancer Maternal Aunt Breast cancer Maternal Aunt Colon cancer Social History Household Members: Spouse Housing: House Alcohol intake: never Patient Tobacco Use Status: Former Tobacco user Tobacco use type: Cigarette Patient : No Sexual orientation: Straight/Heterosexual Gender identity: Female Female Reproductive History Menstrual Age of Menarche: 16 control method: none Total pregnancies: 1 Full term: 1 Number of Living Children: 1 Date of last pap smear: 03/01/23 (negative) History of abnormal pap smear: No Date of Mammogram: 01/22/24 Review of Systems Const All systems reviewed & are unremarkable except as noted in HPI and below Reports as per HPI Eyes Reports no additional complaints ENT Reports no additional complaints Card Reports no additional complaints Resp Reports no additional complaints GI Reports as per HPI and Reports no additional complaints Reports as per HPI Musc Reports no additional complaints Skin/Breast Reports as per HPI Neuro Reports no additional complaints Psych Reports no additional complaints Endo Reports no additional complaints Yonny/Lymph Reports no additional complaints Aller/Immun Reports no additional complaints Physical Exam Vital Signs: Last Vital Signs BP 114/58 L 03/04/24 10:12 BMI result Body Mass Index 25.5 Const General: cooperative, healthy appearing, no acute distress, well developed and alert Orientation/consciousness: patient oriented x3 HEENT Head: Yes normal to inspection Eyes General: appearance normal, both eyes and all related structures Neck Neck: Yes normal visual inspection Thyroid: Thyroid normal Chest Chest palpation & inspection: normal inspection of the chest and other (no puckering, dimpling, peau de orange, retraction, discharge, masses) Breast/axilla inspection: normal inspection of the breasts Breast/axilla palpation: normal palpation of the breasts Resp Effort & Inspection: normal respiratory effort GI Inspection: Yes normal to inspection Palpation (GI): Soft to palpation Rectal Exam - Female: deferred General: Yes bladder normal to palpation External Female Exam: normal external appearance and normal appearance of the urethra Speculum Exam - Vagina: normal appearance of the vagina, normal palpation, normal vaginal discharge and vagina atrophic Speculum Exam - Cervix: normal appearance of the cervix and normal palpation Bimanual exam- vagina & uterus: normal bimanual exam, normal palpation, uterine size normal, bladder normal to palpation, normal palpation and non-tender Bimanual Exam- Adnexa, other: no masses Skin General skin exam: no rashes or lesions noted Rashes: no rashes Neuro General: patient oriented x3 Cognition (Neuro): normal cognition Extrem General: Yes normal to inspection Psych Attitude: cooperative Thought process: Normal thought process present Assessment & Plan Assessment & Plan (1) Encounter for well woman exam with routine gynecological exam: Code(s): Z01.419 - Encounter for gynecological examination (general) (routine) without abnormal findings Category: Medical Plan: Discussed: Current recommendations for pap smears per ASCCP guidelines. Breast awareness, periodic self breast exams and yearly mammogram. Maintain a healthy lifestyle, well balanced diet including Calcium 1,200 mg and Vitamin D 600 IU daily, and routine exercise. Contact the office with any postmenopausal bleeding. Patient verbalizes understanding and agrees to the plan of care. She was given opportunity to ask questions and all questions were answered to the best of my ability. RTO in 1 year for annual home health scheduler exam. This note is constructed using voice recognition software. While every effort has been made to ensure accuracy, rail flaw detector operator errors may have been included. Coding Level of Care Code Est Pt Prev Care >65y(76113) Diagnoses Encounter for well woman exam with routine gynecological exam Z01.419
[2024-03-04 10:12] VITALS: BP 114/58; BMI 25.5
== END 2024-03-04 10:35 | disposition home or self-care (01) ==
LOC: HO.HWS 10:00
PROVIDERS: PCP Internal Medicine Medical Oncology; Visit Provider Advanced Practice Midwife
DX: Z01.419 Encounter for gynecological examination (general) (routine) without abnormal findings (principal)
CPT/HCPCS: G0101

== ENCOUNTER → 2024-03-04 10:00 | Outpatient (BNVA) | payer MEDICARE, SELFPAY | PROVIDERS: PCP Internal Medicine Medical Oncology; Visit Provider Advanced Practice Midwife | DX: Z01.419 Encounter for gynecological examination (general) (routine) without abnormal findings (principal) | CPT/HCPCS: G0101 ==

== ENCOUNTER 2024-08-12 13:46 | Outpatient (REF) | payer MEDICARE, SELFPAY | END 2024-08-12 13:47 | disposition home or self-care (01) | LOC: HO.LAB 13:46 | PROVIDERS: PCP Internal Medicine Medical Oncology; Visit Provider Internal Medicine Medical Oncology | DX: R39.9 Unspecified symptoms and signs involving the genitourinary system (principal) | CPT/HCPCS: 87086 ==

== ENCOUNTER 2024-10-22 09:39 | Outpatient (REF) | payer MEDICARE, SELFPAY ==
[2024-10-22 10:19] LABS: MANUAL DIFF FLAG NO
[2024-10-22 10:30] LABS: Basophils Percent Auto 0.8 % (0-2); Eosinophils Absolute Auto 0.2 X10*3/uL (0.0-0.4); Eosinophils Percent Auto 4.3 % (0-4); Hematocrit 42.5 % (37.0-47.0); Hemoglobin 13.6 g/dl (12.0-16.0); Imm Gran Abs Auto 0.01 X10*3/uL (0.00-0.03); Imm Gran Pct Auto 0.2 % (0.0-0.4); Lymphocytes Absolute Auto 1.8 X10*3/uL (1.2-4.9); Lymphocytes Percent Auto 36.1 % (20-40); Mean Corpuscular Hemoglobin 30.4 pg (27.0-33.0); Mean Corpuscular Volume 95.1 fL (80.0-98.0); Mean Platelet Volume 9.9 fL (9.4-12.3); Monocytes Absolute Auto 0.4 X10*3/uL (0.1-1.2); Monocytes Percent Auto 7.6 % (2-11); Neutrophils Absolute Auto 2.5 x10*3/uL (2.0-8.3); Platelet Count 266 X10*3/uL (160-400); Red Blood Count 4.47 X10*6/uL (4.20-5.50); White Blood Count 4.9 X10*3/uL (4.8-10.8)
[2024-10-22 11:12] LABS: Cholesterol 192 mg/dL (<200); HDL Cholesterol 63 mg/dL (>40); LDL Cholesterol Calculated 111 mg/dL (<100); Triglycerides 94 mg/dL (<150)
== END 2024-10-22 09:40 | disposition home or self-care (01) ==
LOC: HO.10HDL 09:39
PROVIDERS: Visit Provider Internal Medicine Medical Oncology
DX: Z00.00 Encounter for general adult medical examination without abnormal findings (principal); E66.3 Overweight
CPT/HCPCS: 36415; 80061; 85025

== ENCOUNTER 2024-12-29 11:00 | Outpatient (REF) | payer MEDICARE, SELFPAY ==
--- OUTSIDE RECORDS SUMMARY | 2024-12-29 13:15 | XMS_ITS ---
Author Organization Yung Silva III, MD Address [address] [place] [address] Care Team Providers Care Entry Analyst Name Role Phone Yung Silva Primary Care Provider REASON FOR VISIT Telehealth Social History Sex Assigned At : Social History Observation Description Sex Assigned At Female Encounters Encounter Location Date Provider Diagnosis Yung Silva III, MD [address] [place] [address] [place] [address] 09/02/2024 Yung Silva Plan Of Treatment Next Appt Details Provider Name:Yung Silva, 01/01/2025 10:45:00 AM, [address] [place] [address] [place], [address], Provider Name:Yung Silva, 10/27/2025 02:00:00 PM, [address] [place] [address] [place], [address], Progress Notes * Tory SHELTON EDOB:1955 (69 yo F)Acc No.[id number]:09/02/2024 Patient:?Tory SHELTON Provider:?Yung Silva MD :1955???Age:68 Y???Sex:Female D ate:09/02/2024 [address] [id number] Subjective: * Chief Complaints: * ???1. Telehealth. * Medical History:? Objective: * Vitals:? Assessment: Plan: * Treatment: * Images: * The named appointment provid er may or may not be the originator of this progress note, and it is not deemed complete until electronically signed by the appointment provider. Sign off status: Pending * Provider:?Yung Silva MD Date:?12/2023 Generated for Fadi smith/Hilda/Sreekanthitting on:?12/29/2024 01:15 PM EDT
--- OUTSIDE RECORDS SUMMARY | 2024-12-29 13:16 | XMS_ITS | Patient Health Record ---
Author Organization Yung Silva III, MD Address [address] [place] [address] Care Team Providers Care Laboratory Secretary Name Role Phone Yung Silva Primary Care Provider Allergies Allergen (clinical drug ingredient) Drug/Non Drug Allergy documented on EMR Reaction Allergy Type Onset Date Status sulfacetamide Sulfacetamide hives Drug Allergy Active Septra rash Drug Allergy Active amoxicillin Amoxicillin hives Drug Allergy Act elvie Results Component Value Reference Range Notes URINE DIP STICK Reviewed date:10/26/2024 02:26:08 PM Interpretation: Performing Lab: Notes/Report: SG 1.010 1.005 - 1.025 pH 6.0 5.0 - 9.0 LINDSEY Negative Negative - NIT Negative Negative - PRO 15 Negative - Trace GLU Negative Negative - KET Negative Negative - UBG 0.2 0.1 - 1.8 RUDY Negative 0.2 - 1.3 BLD Negative Negative - MM tomosynthesis added views L Reviewed date:01/23/2024 06:06:26 AM Interpretation: Performing Lab: Notes/Report: [address] [place] [address] Mammography Report Signed Patient: Tory Ball MR#: [id number] : 1955 Acct:[id number] Age/Sex: 68 / F ADM Date: 01/22/24 Loc: HO.MAMMO Attending Dr: Yung Silva MD Ordering Physician: Yung Silva MD Results: 2Benign Findings Date of Service: 01/22/24 Follow Up: 1 Year From Orig ina Mammogram Procedure(s): MM tomosynthesis added views L Accession Number(s): [id number] cc: Yung Silva MD EXAMINATION: MM DIAGNOSTIC DIGITAL BREAST TOMOSYNTHESIS, LEFT US BREAST LIMITED, LEFT MAMMOGRAPHY: CLINICAL INFORMATION: Diagnostic follow-up for focal asymmetry in the central portion of the left breast seen on screening exam. COMPARISON: Mammography: 12/24/2023, 12/21/2022, 11/24/2021, 12/01/2020, and dating back to 2018. TECHNIQUE: Digital breast tomosynthesis is performed in the following views: 3-D full-field digital left mediolateral view, as well as 3-D digital spot compression left cc view, and left MLO view x2. Computer-aided diagnosis was used for this study. This was followed by targeted left breast ultrasound. FINDINGS: The breasts are heterogeneously dense, which may obscure small masses (ACR BI-RADS breast composition Category c). Diagnostic views demonstrate persistence of the focal asymmetry in the central left breast most prominent on the CC projection centrally, along the posterior parenchymal cone. In addition there is mild parenchymal asymmetry in the ML view in the anterior superior and posterior superior regions. In comparison with prior examinations dating back to 2018, these areas are completely unchanged, have been mentioned in prior reports as being stable, and appear to represent normal heterogeneously dense parenchymal tissue for this patient. There is otherwise no evidence of developing mass, suspicious microcalcifications, or persisting region of definitive architectural distortion. The parenchymal pattern of the left breast is entirely unchanged from prior exams. ULTRASOUND: CLINICAL INFORMATION: Evaluate focal asymmetry central portion left breast most notable on the CC projection. COMPARISON: No prior left breast ultrasound. TECHNIQUE: Targeted sonographic evaluation was performed using a high frequency linear transducer. Attention was focused on the left breast 7-11 o'clock axis, to include the area of concern. Selected archived documentation. FINDINGS: LEFT BREAST: -There is heterogeneously dense fibroglandular tissue present. There is no mass, cystic abnormality, abnormal shadowing, or architectural distortion identified. There is no ultrasound correlate to the focal asymmetric density in the left breast centrally, and superiorly. MM/MM tomosynthesis added views L IMPRESSION: -There are no findings suspicious for malignancy in either breast. -In comparison with prior examinations dating back to 2018, above-mentioned areas of focal asymmetric density are completely unchanged, have been mentioned in prior reports as being stable, and appear to represent normal heterogeneously dense parenchymal tissue for this patient. No ultrasound correlate could be identified. -Recommend this patient return to routine annual screening. OVERALL ASSESSMENT: Mammography: BI-RADS 2 - Benign Findings Ultrasound: BI-RADS 2 - Benign Findings RECOMMENDATION: 1 year F/U Results were provided to the patient at time of visit by the technologist. This patient's information was entered into a reminder system with a target due date for their next mammogram. Dictated By: Abhijit Rose MD Signed By: <Electronically signed by Abhijit Rose MD in OV> 01/22/24 1638 DD/ 1400 TD/TT: Emergency Department Coordinator: [place] [address] [place] [address] Mammography Report Signed Patient: Maximo Ball MR#: [id number] : 1955 Acct:[id number] Age/Sex: 68 / F ADM Date: 01/22/24 Loc: HO.MAMMO Attending Dr: Yung Silva MD Ordering Physician: Yung Silva MD Results: 2Benign Findings Date of Service: 01/22/24 Follow Up: 1 Year From Orig inal Mammogram Procedure(s): MM tomosynthesis added views L Accession Number(s): [id number] cc: Yung Silva MD EXAMINATION: MM DIAGNOSTIC DIGITA L BREAST TOMOSYNTHESIS, LEFT US BREAST LIMITED, LEFT MAMMOGRAPHY: CLINICAL INFORMATION: Diagnostic follow-up for focal asymmetry in the central portion of the left breast seen on screening exam. COMPARISON: Mammography: 024, 12/21/2022, 11/24/2021, 12/01/2020, and dating back to 2018. TECHNIQUE: Digital breast tomosynthesis is performed in the following views: 3-D full-field digital l eft mediolateral view, as well as 3-D digital spot compression left cc view, and left MLO view x2. Computer-aided diagnosis was used f or this study. This was followed by targeted left breast ultrasound. FINDINGS: The breasts are heterogeneously dense, which may obscure small masses (ACR BI-RADS breast composition Category c). Diagnostic views demonstrate persistence of the focal asymmetry in the central left breast most prominent on the CC projection centrally, along the posterior parenchymal cone. In addition there is mild parenchymal asymmetr y in the ML view in the anterior superior and posterior superior regions. In comparison with prior examinations dating back to 2018, these areas are completely unchanged, have been mentioned in prior reports as being stable, and appear to represent normal heterogeneous ly dense parenchymal tissue for this patient. There is otherwise n o evidence of developing mass, suspicious microcalcifications, or persisting region of definitive architectural distortion. The parenchymal pattern of the left breast is entirely unchanged from prior exams. ULTRASOUND: CLINICAL INFORMATION: Evaluate focal asymm etry central portion left breast most notable on the CC projection. COMPARISON: No prior left breast ultrasound. TECHNIQUE: Targeted sonographic evaluation was performed using a high frequency linear transducer. Attention was focused on the left breast 7-11 o'clock axis, to inc lude the area of concern. Selected archived documentation. FINDINGS: LEFT BREAST: -There is heterogeneously dense fibroglandular tissue present. There is no mass, cystic abnormality, abnormal shadowing, or architectural distortion identifie d. There is no ultrasound correlate to the focal asymmetric density i n the left breast centrally, and superiorly. M M/MM tomosynthesis added views L IMPRESSION: -There are no findin gs suspicious for malignancy in either breast. -In comparison with prior examinations dating back to 2018, above-mentioned area s of focal asymmetric density are completely unchanged, have been mentioned in prior reports as being stable, and appear to represent normal heterogeneously dense parenchymal tissue for this patient. No ultrasound correlate could be identified. -Recommend this jo ent return to routine annual screening. OVERALL ASSESSMENT: Mammography: BI-RADS 2 - Benign Findings Ultrasound: BI-RADS 2 - Benign Findings RECOMMENDATION: 1 year F/U Results were provide d to the patient at time of visit by the technologist. This patient's information was entered into a reminder system with a target due date for their next mammogram. Dictated By: Abhijit Rose MD Signed By: <Electronically signed by Abhijit Rose MD in OV> 01/22/24 1638 DD/ 1400 TD/TT: Emergency Department Coordinator: US breast LT limited mamm on ly Reviewed date:01/23/2024 06:06:26 AM Interpretation: Performing Lab: Notes/Report: [facility] [address] [place] [address] Ultrasound Report Signed Patient: Tory Ball MR#: [id number] : 1955 Acct:[id number] Age/Sex: 68 / F ADM Date: 01/22/24 Loc: HO.MAMMO Attending Dr: Yung Silva MD Ordering Physician: Yung Silva MD Date of Service: 01/22/24 Procedure(s): US breast LT limited mamm only Accession Number(s): [id number] cc: Yung Silva MD EXAMINATION: MM DIAGNOSTIC DIGITAL BREAST TOMOSYNTHESIS, LEFT US BREAST LIMITED, LEFT MAMMOGRAPHY: CLINICAL INFORMATION: Diagnostic follow-up for focal asymmetry in the central portion of the left breast seen on screening exam. COMPARISON: Mammography: 12/24/2023, 12/21/2022, 11/24/2021, 12/01/2020, and dating back to 2018. TECHNIQUE: Digital breast tomosynthesis is performed in the following views: 3-D full-field digital left mediolateral view, as well as 3-D digital spot compression left cc view, and left MLO view x2. Computer-aided diagnosis was used for this study. This was followed by targeted left breast ultrasound. FINDINGS: The breasts are heterogeneously dense, which may obscure small masses (ACR BI-RADS breast composition Category c). Diagnostic views demonstrate persistence of the focal asymmetry in the central left breast most prominent on the CC projection centrally, along the posterior parenchymal cone. In addition there is mild parenchymal asymmetry in the ML view in the anterior superior and posterior superior regions. In comparison with prior examinations dating back to 2018, these areas are completely unchanged, have been mentioned in prior reports as being stable, and appear to represent normal heterogeneously dense parenchymal tissue for this patient. There is otherwise no evidence of developing mass, suspicious microcalcifications, or persisting region of definitive architectural distortion. The parenchymal pattern of the left breast is entirely unchanged from prior exams. ULTRASOUND: CLINICAL INFORMATION: Evaluate focal asymmetry central portion left breast most notable on the CC projection. COMPARISON: No prior left breast ultrasound. TECHNIQUE: Targeted sonographic evaluation was performed using a high frequency linear transducer. Attention was focused on the left breast 7-11 o'clock axis, to include the area of concern. Selected archived documentation. FINDINGS: LEFT BREAST: -There is heterogeneously dense fibroglandular tissue present. There is no mass, cystic abnormality, abnormal shadowing, or architectural distortion identified. There is no ultrasound correlate to the focal asymmetric density in the left breast centrally, and superiorly. US/US breast LT limited mamm only IMPRESSION: -There are no findings suspicious for malignancy in either breast. -In comparison with prior examinations dating back to 2018, above-mentioned areas of focal asymmetric density are completely unchanged, have been mentioned in prior reports as being stable, and appear to represent normal heterogeneously dense parenchymal tissue for this patient. No ultrasound correlate could be identified. -Recommend this patient return to routine annual screening. OVERALL ASSESSMENT: Mammography: BI-RADS 2 - Benign Findings Ultrasound: BI-RADS 2 - Benign Findings RECOMMENDATION: 1 year F/U Results were provided to the patient at time of visit by the technologist. This patient's information was entered into a reminder system with a target due date for their next mammogram. Dictated By: Abhijit Rose MD Signed By: <Electronically signed by Abhijit Rose MD in OV> 01/22/24 1638 DD/ 1435 TD/TT: Emergency Department Coordinator: [facility] [address] [place] [address] Ultrasound Report Signed Patient: Maximo Ball MR#: [id number] : 1955 Acct:[id number] Age/Sex: 68 / F ADM Date: 01/22/24 Loc: HO.MAMMO Attending Dr: Yung Silva MD Ordering Physician: Yung Silva MD Date of Service: 01/22/24 Procedure(s): US thania ast LT limited mamm only Accession Number(s): [id number] cc: Yung Silva MD EXAMINATION: MM DIAGNOSTIC DIGITA L BREAST TOMOSYNTHESIS, LEFT US BREAST LIMITED, LEFT MAMMOGRAPHY: CLINICAL INFORMATION: Diagnostic follow-up for focal asymmetry in the central portion of the left breast seen on screening exam. COMPARISON: Mammography: 024, 12/21/2022, 11/24/2021, 12/01/2020, and dating back to 2018. TECHNIQUE: Digital breast tomosynthesis is performed in the following views: 3-D full-field digital l eft mediolateral view, as well as 3-D digital spot compression left cc view, and left MLO view x2. Computer-aided diagnosis was used f or this study. This was followed by targeted left breast ultrasound. FINDINGS: The breasts are heterogeneously dense, which may obscure small masses (ACR BI-RADS breast composition Category c). Diagnostic views demonstrate persistence of the focal asymmetry in the central left breast most prominent on the CC projection centrally, along the posterior parenchymal cone. In addition there is mild parenchymal asymmetr y in the ML view in the anterior superior and posterior superior regions. In comparison with prior examinations dating back to 2018, these areas are completely unchanged, have been mentioned in prior reports as being stable, and appear to represent normal heterogeneous ly dense parenchymal tissue for this patient. There is otherwise n o evidence of developing mass, suspicious microcalcifications, or persisting region of definitive architectural distortion. The parenchymal pattern of the left breast is entirely unchanged from prior exams. ULTRASOUND: CLINICAL INFORMATION: Evaluate focal asymm etry central portion left breast most notable on the CC projection. COMPARISON: No prior left breast ultrasound. TECHNIQUE: Targeted sonographic evaluation was performed using a high frequency linear transducer. Attention was focused on the left breast 7-11 o'clock axis, to inc lude the area of concern. Selected archived documentation. FINDINGS: LEFT BREAST: -There is heterogeneously dense fibroglandular tissue present. There is no mass, cystic abnormality, abnormal shadowing, or architectural distortion identifie d. There is no ultrasound correlate to the focal asymmetric density i n the left breast centrally, and superiorly. U S/US breast LT limited mamm only IMPRESSION: -There are no findin gs suspicious for malignancy in either breast. -In comparison with prior examinations dating back to 2018, above-mentioned area s of focal asymmetric density are completely unchanged, have been mentioned in prior reports as being stable, and appear to represent normal heterogeneously dense parenchymal tissue for this patient. No ultrasound correlate could be identified. -Recommend this jo ent return to routine annual screening. OVERALL ASSESSMENT: Mammography: BI-RADS 2 - Benign Findings Ultrasound: BI-RADS 2 - Benign Findings RECOMMENDATION: 1 year F/U Results were provide d to the patient at time of visit by the technologist. This patient's information was entered into a reminder system with a target due date for their next mammogram. Dictated By: Abhijit Rose MD Signed By: <Electronically signed by Abhijit Rose MD in OV> 01/22/24 1638 DD/ 1435 TD/TT: Emergency Department Coordinator: MAMMOGRAM DIGITAL BILATERAL SCREEN Reviewed date:04/16/2024 01:36:57 PM Interpretation:undefined Performing Lab: Notes/Report: undefined Complete Blood Count Auto Di ff Reviewed date:10/25/2024 04:49:06 PM Interpretation: Performing Lab:[facility], [address] [place] [id number] Notes/Report: White Blood Count 4.9 4.8-10.8 X10*3/uL Red Blood Count 4.47 4.20-5.50 X10*6/uL Hemoglobin 13.6 12.0-16.0 g/dl Hematocrit 42.5 37.0-47.0 % Mean Corpuscular Volume 95.1 80.0-98.0 fL Mean Corpuscular Hemoglobin 30.4 27.0-33.0 pg Mean Corpuscular HGB Conc 32.0 31.0-35.0 g/dl Red Cell Distribution Width 14.0 11.0-16.0 % Platelet Count 266 160-400 X10*3/uL Mean Platelet Volume 9.9 9.4-12.3 fL Neutrophils Percent Auto 51.0 45-73 % Imm Gran Pct Auto 0.2 0.0-0.4 % Lymphocytes Percent Auto 36.1 20-40 % Monocytes Percent Auto 7.6 2-11 % Eosinophils Percent Auto 4.3 0-4 % Basophils Percent Auto 0.8 0-2 % NRBC Pct Auto 0.0 0.0-0.2 /100WBC Neutrophils Absolute Auto 2.5 2.0-8.3 x10*3/uL Imm Gran Abs Auto 0.01 0.00-0.03 X10*3/uL Lymphocytes Absolute Auto 1.8 1.2-4.9 X10*3/uL Monocytes Absolute Auto 0.4 0.1-1.2 X10*3/uL Eosinophils Absolute Auto 0.2 0.0-0.4 X10*3/uL Basophils Absolute Auto 0.0 0.0-0.2 X10*3/uL NRBC Abs Auto 0.000 0.0-0.012 X10*3/uL Lipid Panel Reviewed date:10/25/2024 04:49:06 PM Interpretation: Performing Lab:[facility], [address] [place] [phone] Notes/Report: Triglycerides 94 <150 mg/dL Desirable Triglyceride: less than 150 mg/dL Borderline High Triglyceride 150-199 mg/dL High Triglyceride: 200-499 mg/dL Very High Triglyceride: greater than or equal to 5OO mg/dL Cholesterol 192 <200 mg/dL Desirable Cholesterol: less than 200 mg/dL Borderline High Cholesterol: 200-239 mg/dL High Cholesterol: greater than 239 mg/dL LDL Cholesterol Calculated 111 <100 mg/dL Desirable LDL: less than 100 mg/dL Near Optimal/Above Optimal LDL: 110-129 mg/dL Borderline High LDL: 130-159 mg/dL High LDL: 160-189 mg/dL Very High LDL: greater than or equal to 190 mg/dL HDL Cholesterol 63 >40 mg/dL Desirable HDL: greater than 40 mg/dL Note: This HDL assay may give artificially low results in patients with liver disease. Reason For Referral Reason Consult and Treat Hearing Loss Diagnosis 1 Hearing loss (H91.90 ) Referral Organization Yung Silva III, MD Referring Provider First Name Yung Referring Provider Last Name Shira Referring Provider Speciality Internal M edicine Referred Provider [facility] er, Speech and Hearing Referred Provider Specialty Unknown General Notes D, Radha 10/27/2024 04:06:13 PM > Referral and progress note faxed. Referral Priority Routine Medications Medication SIG (Take, Route, Fr equency, Duration) Notes Start Date End Date Status Multivitamin Orally Active valACYclovir HCl 1 GM 1 tablet Orally th ree times a day for 7 days 2024 01/01/2025 Active Immunizations Vaccine Route Administration Date Status Comme nts Tetanus and Diphtheria Toxoids Adsorbed IM Intramuscular 03/25/2019 Administered Influenza no Preserv 3 and > Unknown 08/29/2019 Administered Influenza no Preserv 3 and > Unknown 07/17/2020 Administered SHINGRIX Unknown 04/23/2022 Administered SHINGRIX Unknown 02/22/2022 Administered COVID- 19 Vaccine Unknown 07/24/2021 Administered Influenza, quad Unknown 07/23/2022 Administered Influenza, quad Unknown 08/10/2018 Administered Influenza, quad Unknown 07/17/2020 Administered Influenza-iiv4 p-free high dose Unknown 09/13/2023 Administered Comirnaty Pfizer COVID-19 12+ Unknown 08/14/2023 Administered Comirnaty Pfizer COVID-19 12+ Unknown 07/01/2024 Administered Flu-IIv4 Unknown 08/29/2019 Administered COVID 19 Xochitl Unknown 12/21/2020 Administered Influenza no Preserv 3 and > Unknown 06/11/2021 Administered Influenza no Preserv 3 and > Unknown 07/13/2014 Administered Flu-IIv3 Unknown 07/01/2024 Administered COVID Moderna Bivalent Unknown 09/13/2022 Administered RSV Adjuvant Unknown 11/16/2023 Administered Social History Tobacco Use: Social History Observation Description Date Details (start date - stop date) Former Smoker NA - NA Sex Assigned At : Social History Observation Description Sex Assigned At Female Tobacco Control (Standard) Question Answer Notes Tobacco use: Former smoker How long has it been since you last smoked? Grea ter than 10 years Additional Findings: Tobacco non-user Ex-cigaret te smoker AUDIT-C (Standard) Question Answer Notes Did you have a drink containing alcohol in the p ast year? No Points 0 Interpretation Negative Problems Problem Type SNOMED Code ICD Code Onset Dates Problem Status W/U Status Risk Notes Problem 5247129 Former smoker (Z87.891) Active confirmed She is highly motivated not to smoke. We elaborated a plan to prevent relapse in times of stress and illness. Problem Overweight (881749988) Overweight (E66.3) Active confirmed Her body mass index is 26. We discussed her diet and nutrition. We made a plan to lose weight at a rate of one half of a pound per week until the body mass index is normal. Problem 03842754 Allergy to sulfa drugs (Z88.2) Active confirmed Problem 625136689 Rosacea (L71.9) Active confirmed She has a prescription for metronidazole. There was no rosacea seen on today's examination. Problem 16917041 Penicillin allergy (Z88.0) Active confirmed Problem Hearing loss (33516328) Hearing loss (H91.90) Active confirmed She says her hearing loss is fairly stable. No change in her therapy was made. Problem 079395701 History of cholecystectomy (Z90.49) Active confirmed Problem 854597225 Seasonal allergies (J30.2) Active confirmed She will continue on current therapy without change. Problem 688673363 Urinary frequency (R35.0) Active confirmed The urine culture showed 10,000-50,000 mixed anthony. Her frequency is improving without any antibiotic. She will be observed. Problem 254688272 GERD with esophagitis (K21.0) Active confirmed Her reflux symptoms are well-controlled with [id number] r liquid antacids and omeprazole. Problem Allergic rhinitis (96197567) Allergic rhinitis, unspecified seasonality, unspecified trigger (J30.9) Active confirmed She has had congestion and a cough for several months. The examination of her ears and throat is unremarkable. Her nares are normal. The cough is nonproductive. I have recommended loratadine and Flonase. Problem Postmenopausal state (73372655) Post-menopause (Z78.0) Active confirmed We discussed maintenance of bone density in the postmenopausal state today. Problem Gastroesophageal reflux disease with esophagitis (disorder) (164947984) Gastroesophageal reflux disease with esophagitis, unspecified whether hemorrhage (K21.00) Active confirmed She has been referred back to orthopedics for definitive treatment of the right knee. Problem 586941446398616 Pain, joint, knee, right (M25.561) Active confirmed She will be referred back to orthopedic surgery for definitive diagnosis and treatment. Vital Signs Heart Rate 76 /min 2024 Temperature 97.4 degrees Fahrenheit 2024 Blood pressure diastolic 80 mm Hg 2024 Height 65 in 2024 Blood pressure systolic 141 mm Hg 2024 Weight 157 lbs 2024 BMI 26.12 kg/m2 2024 Encounters Encounter Location Date Provider Diagnosis Yung Silva III, MD [address] [place] [address] [place] [address] 08/14/2024 Yung Silva GERD with esophagiti s K21.0 ; Urinary frequency R35.0 ; Former smoker Z87.891 ; Allergic rhinitis, unspecified seasonality, unspecified trigger J30.9 ; Rosacea L71.9 and Overweight E66.3 Yung Silva III, MD [address] [place] [address] [place] [address] 10/26/2024 Yung Silva Hearing loss H91.90 ; Pain, joint, knee, right M25.561 ; Screening mammogram, encounter for Z12.31 ; Overweight E66.3 ; Rosacea L71.9 ; Former smoker Z87.891 ; Allergic rhinitis, unspecified seasonality, unspecified trigger J30.9 and Gastroesophageal reflux disease with esophagitis, unspecified whether hemorrhage K21.00 Yung Silva III, MD [address] [place] [address] [place] [address] 2024 Yung Silva Herpes zoster withou t complication B02.9 ; Seasonal allergies J30.2 ; Allergic rhinitis, unspecified seasonality, unspecified trigger J30.9 ; Rosacea L71.9 ; Overweight E66.3 ; Post-menopause Z78.0 and Gastroesophageal reflux disease with esophagitis, unspecified whether hemorrhage K21.00 Yung Silva III, MD [address] [place] [address] [place] [address] 06/16/2024 Yung Silva III, MD [address] [place] [address] [place] [address] 06/16/2024 Yung Silva III, MD [address] [place] [address] [place] [address] 08/12/2024 Yung Silva UTI symptoms R39.9 Assessments Encounter Date Diagnosis (ICD Code) Assessment Notes T reatment Notes Treatment Clinical Notes 08/14/2024 Urinary frequency (ICD-10 - R35.0) The urine culture showed 10,000-50,000 mixed antohny. Her frequency is improving without any antibiotic. She will be observed. 08/14/2024 GERD with esophagiti s (ICD-10 - K21.0) Her reflux symptoms are well-controlled with fkuc-myz-smthovq liquid antacids and omeprazole. 10/26/2024 Hearing loss (ICD-10 - H91.90) She says her hearing loss is fairly stable. No change in her therapy was made. 10/26/2024 Pain, joint, knee, right (ICD-10 - M25.561) She will be referred back to orthopedic surgery for definitive diagnosis and treatment. 2024 Herpes zoster withou t complication (ICD-10 - B02.9) The erruption on the skin of the left breast looks more like shingles anything else. I am not 100% certain that it does have ruptured blisters and there is no other explanation. I have prescribed a week's worth of valacyclovir. He was instructed to call me if anything worsens. 2024 Seasonal allergies (ICD-10 - J30.2) She will continue on current therapy without change. 08/12/2024 UTI symptoms (ICD-10 - R39.9) 08/14/2024 Former smoker (ICD-1 0 - Z87.891) She is highly motivated not to smoke. We elaborated a plan to prevent relapse in times of stress and illness. 10/26/2024 Screening mammogram, encounter for (ICD-10 - Z12.31) We have scheduled her annual screening mammogram. 2024 Allergic rhinitis, unspecified seasonality, unspecified trigger (ICD-10 - J30.9) She has had congestion and a cough for several months. The examination of her ears and throat is unremarkable. Her nares are normal. The cough is nonproductive. I have recommended loratadine and Flonase. 08/14/2024 Allergic rhinitis, unspecified seasonality, unspecified trigger (ICD-10 - J30.9) She has had congestion and a cough for several months. The examination of her ears and throat is unremarkable. Her nares are normal. The cough is nonproductive. I have recommended loratadine and Flonase. 10/26/2024 Overweight (ICD-10 - E66.3) Her body mass index is 26. We discussed her diet and nutrition. We made a plan to lose weight at a rate of one half of a pound per week until the body mass index is normal. 2024 Rosacea (ICD-10 - L71.9) She has a prescription for metronidazole. There was no rosacea seen on today's examination. 08/14/2024 Rosacea (ICD-10 - L71.9) She has a prescription for metronidazole. There was no rosacea seen on today's examination. 10/26/2024 Rosacea (ICD-10 - L71.9) She has a prescription for metronidazole. There was no rosacea seen on today's examination. 2024 Overweight (ICD-10 - E66.3) Her body mass index is 26. We discussed her diet and nutrition. We made a plan to lose weight at a rate of one half of a pound per week until the body mass index is normal. 08/14/2024 Overweight (ICD-10 - E66.3) She is very slightly overweight. We discuussed a diet and nutrition. She will lose weight at a rate of one half of a pound per week through a diet restricted in fact calories and sodium. 10/26/2024 Former smoker (ICD-1 0 - Z87.891) She is highly motivated not to smoke. We elaborated a plan to prevent relapse in times of stress and illness. 2024 Post-menopause (ICD- 10 - Z78.0) We discussed maintenance of bone density in the postmenopausal state today. 10/26/2024 Allergic rhinitis, unspecified seasonality, unspecified trigger (ICD-10 - J30.9) She has had congestion and a cough for several months. The examination of her ears and throat is unremarkable. Her nares are normal. The cough is nonproductive. I have recommended loratadine and Flonase. 2024 Gastroesophageal reflux disease with esophagitis, unspecified whether hemorrhage (ICD-10 - K21.00) She has been referred back to orthopedics for definitive treatment of the right knee. 10/26/2024 Gastroesophageal reflux disease with esophagitis, unspecified whether hemorrhage (ICD-10 - K21.00) She has been referred back to orthopedics for definitive treatment of the right knee. Plan Of Treatment Pending Test Test Name Order Date URINE DIP STICK 10/11/2021 PROFILE, FASTING (COMPREHENSIVE METABOLI C) 10/28/2019 PROFILE, FASTING (COMPREHENSIVE METABOLI C) 09/26/2018 PROFILE, FASTING (COMPREHENSIVE METABOLI C) 10/26/2024 PROFILE, FASTING (COMPREHENSIVE METABOLI C) 10/24/2018 PROFILE, FASTING (COMPREHENSIVE METABOLI C) 10/23/2023 PROFILE, FASTING (COMPREHENSIVE METABOLI C) 10/17/2022 PROFILE, FASTING (COMPREHENSIVE METABOLI C) 10/04/2020 PROFILE, FASTING (COMPREHENSIVE METABOLI C) 10/11/2021 URIC ACID 09/26/2018 LIPID PANEL 10/04/2020 LIPID PANEL 10/11/2021 LIPID PANEL 10/28/2019 LIPID PANEL 10/24/2018 LIPID PANEL 09/26/2018 LIPID PANEL 10/17/2022 TSH (THYROID STIMULATING HORMONE) 2017 CBC w DIFF 10/17/2022 CBC w DIFF 10/04/2020 CBC w DIFF 10/11/2021 CBC w DIFF 10/28/2019 CBC w DIFF 10/24/2018 CBC w DIFF 09/26/2018 XR KNEE LT 4 VIEWS 10/28/2019 BONE DENSITY DEXA 10/04/2020 MAMMOGRAM DIGITAL BILATERAL SCREEN 10/23 MAMMOGRAM DIGITAL BILATERAL SCREEN 10/17 MAMMOGRAM DIGITAL BILATERAL SCREEN 10/11 MAMMOGRAM DIGITAL BILATERAL SCREEN 10/04 VITAMIN D 25-OH TOTAL 09/26/2018 VITAMIN D 25-OH TOTAL 10/24/2018 CBC WITH AUTO DIFF 10/26/2024 CBC WITH AUTO DIFF 10/23/2023 Lipid Panel 10/26/2024 Lipid Panel 10/23/2023 Urine Culture 08/12/2024 MM tomosynthesis screening BI 10/26/2024 Next Appt Details Provider Name:Yung Silva, 01/01/2025 10:45:00 AM, [address] [place] [address] JOSELINE QUINONES, [place], [address], Provider Name:Yung Silva, 10/27/2025 02:00:00 PM, [address] [place] [address] JOSELINE QUINONES, [place], [phone], Insurance Providers Payer Name Payer Address Payer Phone Subscriber Number Group Number Insured Name Patient Relationship to Insured Coverage Start Date Coverage End Date MEDICARE NGS [address] [place] [address] [id number] Tory Ball Self - patient is the insured [facility] [address] [place], [place] [id number] [phone] [id number] Tory Ball Self - patient is the insured Medical (General) History Medical History History ICD Code Esophageal erosions K22.10 Gastritis, presence of bleed ing unspecified, unspecified chronicity, unspecified gastritis type K29.70 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 Charmaine Escalante 2009 EGD with ERCP and sphinctero stacy, [facility], impacted stone, Dr. Yung Chavez 2009 1985
--- OUTSIDE RECORDS SUMMARY | 2024-12-29 13:16 | XMS_ITS | Patient Health Record ---
Author Organization [facility] Address [address] [place] [address] Care Team Providers Care Management Accounts Manager Name Role Phone Yung Silva MD Primary Care Provider Yung Pablo Unavailable [phone] Allergies Allergen (clinical drug ingredient) Drug/Non Drug Allergy documented on EMR Reaction Allergy Type Onset Date Status Sulfa Unknown Drug Allergy Active Reason For Referral No Information Immunizations Vaccine Route Administration Date Status Comme nts Influenza Unknown 05/31/2021 Administered Social History Alcohol Screen Question Answer Notes Did you have a drink containing alcohol in the p ast year? No Points 0 Interpretation Negative Section Notes: She stopped smoking over 10 years ago and does not use any significant amounts of alcohol She stopped smoking over 10 years ago and does not use any significant amounts of alcohol Problems Problem Type SNOMED Code ICD Code Onset Dates Problem Status W/U Status Risk Notes Problem Screening for malignant neoplasm of colon (490105694) Encounter for screening for malignant neoplasm of colon (Z12.11) Active confirmed Problem Pre-procedure evaluation check (298168129) Encounter for other preprocedural examination (Z01.818) Active confirmed Problem Diverticulosis of colon (677589168) Diverticulosis of colon (K57.30) Active confirmed Plan Of Treatment Future Test Test Name Order Date COLONOSCOPY 10/25/2011 COLONOSCOPY 03/15/2022 Insurance Providers Payer Name Payer Address Payer Phone Subscriber Number Group Number Insured Name Patient Relationship to Insured Coverage Start Date Coverage End Date [facility] [address] [place] [address] [id number] VIRY SHELTON Self - patient is the insured Medical (General) History Medical History History ICD Code Denies MD,DM,CVA,Lung disease,renal dise ase Neg. screening colonoscopy in 11/2011 ERCP with sphincterotomy and stone remov al after her CCY in 2009 EGD with gastritis and H.pylori with Dr. Escalante in 2009 Surgical History Surgery Date(Month/Year) Cholecystectomy with ERCP as above
--- OUTSIDE RECORDS SUMMARY | 2024-12-29 13:16 | XMS_ITS ---
Author Organization Yung Silva III, MD Address [address] [place] [address] Care Team Providers Care Wholesale And Retail Merchant Name Role Phone Yung Silva Primary Care Provider Allergies Allergen (clinical drug ingredient) Drug/Non Drug Allergy documented on EMR Reaction Allergy Type Onset Date Status sulfacetamide Sulfacetamide hives Drug Allergy Active Septra rash Drug Allergy Active amoxicillin Amoxicillin hives Drug Allergy Act elvie REASON FOR VISIT Vesicular rash left breast for 6 days, Allergic rhinitis, GERD, Rosacea Medications Medication SIG (Take, Route, Fr equency, Duration) Notes Start Date End Date Status Multivitamin Orally Active valACYclovir HCl 1 GM 1 tablet Orally th ree times a day for 7 days 2024 01/01/2025 Active Social History Tobacco Use: Social History Observation Description Date Details (start date - stop date) Former Smoker NA - NA Sex Assigned At : Social History Observation Description Sex Assigned At Female Tobacco Control (Standard) Question Answer Notes Tobacco use: Former smoker How long has it been since you last smoked? Grea ter than 10 years Additional Findings: Tobacco non-user Ex-cigaret te smoker Vital Signs Temperature 97.4 degrees Fahrenheit 12/26/19 25 Blood pressure systolic 141 mm Hg 12/26/19 25 Blood pressure diastolic 80 mm Hg 025 Heart Rate 76 /min 2024 Height 65 in 2024 Weight 157 lbs 2024 BMI 26.12 kg/m2 2024 Encounters Encounter Location Date Provider Diagnosis Yung Silva III, MD [address] [place] [address] JOSELINE WORRELL, [place] [address] 2024 Yung Silva Herpes zoster withou t complication B02.9 ; Seasonal allergies J30.2 ; Allergic rhinitis, unspecified seasonality, unspecified trigger J30.9 ; Rosacea L71.9 ; Overweight E66.3 ; Post-menopause Z78.0 and Gastroesophageal reflux disease with esophagitis, unspecified whether hemorrhage K21.00 Assessments Encounter Date Diagnosis (ICD Code) Assessment Notes T reatment Notes Treatment Clinical Notes 2024 Herpes zoster withou t complication (ICD-10 [...] will continue on current therapy without change. 2024 Allergic rhinitis, unspecified seasonality, unspecified trigger (ICD-10 - J30.9) She has had congestion and a cough for several months. The examination of her ears and throat is unremarkable. Her nares are normal. The cough is nonproductive. I have recommended loratadine and Flonase. 2024 Rosacea (ICD-10 - L71.9) She has a prescription for metronidazole. There was no rosacea seen on today's examination. 2024 Overweight (ICD-10 - E66.3) Her body mass index is 26. We discussed her diet and nutrition. We made a plan to lose weight at a rate of one half of a pound per week until the body mass index is normal. 2024 Post-menopause (ICD- 10 - Z78.0) We discussed maintenance of bone density in the postmenopausal state today. 2024 Gastroesophageal reflux disease with esophagitis, unspecified whether hemorrhage (ICD-10 - K21.00) She has been referred back to orthopedics for definitive treatment of the right knee. Plan Of Treatment Medication Medication Name Sig Start Date Stop Date Notes Multivitamin Orally valACYclovir HCl 1 GM 1 tablet Orally th ree times a day for 7 days 2024 01/01/2025 Next Appt Details Follow Up: 1 Week, Reason: O V Provider Name:Yung Silva, 01/01/2025 10:45:00 AM, [address] [place] [address] JOSELINE QUINONES, [place], [phone], Provider Name:Yung Silva, 10/27/2025 02:00:00 PM, [address] [place] [address] JOSELINE QUINONES, [place], [address], Progress Notes * Tory SHELTON EDOB:1955 (69 yo F)Acc No.[id number]:2024 Progress Notes Patient:?NIKITA Tory Derick Provider:?Yung Silva MD :1955???Age:69 Y???Sex:Female D ate:2024 Address:[address] [place], [id number] Subjective: * Chief Complaints: * ???Vesicular rash left breas t for 6 daysAllergic rhinitisGERDRosacea * HPI: ???v:? She comes to the office today because of a red rash on her left breast.? There were 2 areas both somewhat linear above the nipple at 12 and 1:00 each about an inch and a half long with obvious ruptured blisters.? There was no other skin abnormality.? Her rosacea has resolved.? The area was not painful but did itch.? Red skin was feels under the blister remnants.? Because this is possibly zoster she was given a seven-day course of valacyclovir.? She was told to wash the area gently with soap and water and cover with a nonabsorbent bandage until healed.? Follow-up visit was arranged. * ROS:?General/Constitutional:?pain?only normal aches and pains.?Chills?denies.?Fatigue?admits.?Fever?denies.?ENT:?Decreased hearing?in both ears.?Respiratory:?Cough?denies.?Cardiovascular:?Chest pain with exertion?denies.?Dyspnea on exertion?denies.?Shortness of breath?denies.?Gastrointestinal:?Constipation?occasional.?Decreased appetite?denies.?Diarrhea?denies.?Heartburn?controlled with medications.?Nausea?denies.?Rectal bleeding?denies.?Vomiting?denies.?Hematology:?bruising?denies.?petechiae?denies.?Swollen glands?none have been noted.?Genitourinary:?Frequent urination?at night.?Musculoskeletal:?Muscle aches?denies.?Painful joints?Right knee.?Sciatica?denies.?Weakness?denies.?Skin:?Itching?denies.?Rash?2 small areas with vesicles upper portion left breast for 6 days.?Skin lesion(s)?denies.?Neurologic:?Difficulty speaking?denies.?Dizziness?denies.?Headache?denies.?Low back pain?denies.?Psychiatric:?Depressed mood?denies.? * Medical History:? * Surgical History:?cholecyste ctomy 02/2010No history * Hospitalization/Major Diagno stic Procedure:? 1984EGD with ERCP and sphincterotomy, [facility], impacted stone, Dr. Yung Chavez 2009cholecystectomy, [facility], Dr. Charmaine Escalante history * Family History:?Father: dece ased 65 yrs, Coronary artery disease, diagnosed with CVD.?Mother: , Osteoporosis, breast cancer treated in [place] with chemotherapy with onset in her 80s., diagnosed with DM, HTN, CVD.?Paternal uncle: .?1 brother(s) , 2 sister(s) - healthy. 1 daughter(s) - healthy. .? Her father at the age of 65 of ischemic heart disease. Her mother is living and is hypertensive with adult-onset diabetes mellitus and breast cancer over the age of 80. Her father\'s brother with Alzheimer's dementia. No one in the family, to her knowledge, has ever had genetic testing. Her brother has been found to have benign colonic polyps. Has 2 sisters are healthy and well. She is not aware of any family history of mental illness or substance use disorder. * Social History:?Tobacco Use:?Tobacco Control (Standard)?Tobacco use:?Former smoker ?How long has it been since you last smoked??Greater than 10 years ?Additional Findings: Tobacco non-user?Ex-cigarette smoker ???She was born and [place], [place]. She has a 33-year-old daughter, Amy, who is healthy and well. 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 She stopped smoking in 1990. * Medications:?TakingMultivita min Orally Medication List reviewed and reconciled with the patientTaking Multivitamin Orally Medication List reviewed and reconciled with the patient * Allergies:?Septra: rash - Al lergyAmoxicillin: hives - AllergySulfacetamide: hives - Allergyno[Allergies Verified] Objective: * Vitals:?Ht: 65, Wt:157, BMI: 26.12, BP:141/80, HR:76, Temp:97.4, Wt-k.21. * Examination: ???General Examination: ?GENERAL APPEARANCE:?pleasant, well nourished, well developed, in no acute distress, calm and relaxed, overweight, woman.?HEAD:?atraumatic, normocephalic.?EYES:?eomi, perrla, anicteric, conjugate.?EARS:?Normal anatomy with mild bilateral hearing loss.?NOSE:?septum intact.?ORAL CAVITY:?normal, unremarkable.?NECK/THYROID:?no jugular venous distention, no carotid bruit, thyroid normal.?LYMPH NODES:?no enlarged lymph nodes,spleen normal.?SKIN:?2 erythematous areas above the nipple of the left breast, each is oblong with ruptured vesicle, no other abnormalities.?HEART:?no clicks, gallops, murmurs, or rubs, regular rhythm, S1, S2 normal, no s3, or vascular bruits.?LUNGS:?clear to auscultation .?BREASTS:?Not examined.?ABDOMEN:?bowel sounds normal, no ascites, no organomegaly, no mass, overweight.?RECTAL EXAM:?not examined.?MUSCULOSKELETAL:?extremities unremarkable, no clubbing, cyanosis or edema.?PERIPHERAL PULSES:?normal.?NEUROLOGIC:?alert and oriented, cranial nerves 2-12 grossly intact, deep tendon reflexes 2+ symmetrical, motor strength normal upper and lower extremities, sensory exam intact.?PSYCH:?alert, oriented.? Assessment: * Assessment: 1.?Seasonal allergies - J30. 2 (Primary)???Notes :She will continue on current therapy without change.???2.?Herpes zoster without complication - B02.9???Notes :The erruption on the skin of the left breast looks more like shingles anything else.? I am not 100% certain that it does have ruptured blisters and there is no other explanation.? I have prescribed a week's worth of valacyclovir.? He was instructed to call me if anything worsens.???3.?Allergic rhinitis, unspecified seasonality, unspecified trigger - J30.9???Notes :She has had congestion and a cough for several months. The examination of her ears and throat is unremarkable. Her nares are normal. The cough is nonproductive. I have recommended loratadine and Flonase.???4.?Rosacea - L71.9???Notes :She has a prescription for metronidazole. There was no rosacea seen on today's examination.???5.?Overweight - E66.3???Notes :Her body mass index is 26. We discussed her diet and nutrition. We made a plan to lose weight at a rate of one half of a pound per week until the body mass index is normal.???6.?Post-menopause - Z78.0???Notes :We discussed maintenance of bone density in the postmenopausal state today.???7.?Gastroesophageal reflux disease with esophagitis, unspecified whether hemorrhage - K21.00???Notes :She has been referred back to orthopedics for definitive treatment of the right knee.??? Plan: * Treatment: * Procedure Codes:? * Preventive Medicine:? ??Counseling:?Care goal follow-up plan:?Counseling for abnormal BMI given?Yes ?Above Normal BMI Follow-up?Dietary management education, guidance, and counseling, Dietary needs education * Follow Up:?1 Week (Reason: O V) * Images: * Sign off status: Completed true * Provider:?Yung Silva MD Date:?11/29 Generated for Fadi smith/Hilda/eTdiegoitting on:?12/29/2024 01:16 PM EDT History and Physical Notes * Examination Category Sub-Category Detail Notes General Examination GENERAL APPEARANCE: pleasant , well nourished, well developed, in no acute distress, calm and relaxed, overweight, woman HEAD: atraumatic, normocep halic EYES: eomi, perrla, anicte luisa, conjugate EARS: Normal anatomy with mild bilateral hearing loss NOSE: septum intact NECK/THYROID: no jugular venous di stention, no carotid bruit, thyroid normal HEART: no clicks, gallops, murmurs, or rubs, regular rhythm, S1, S2 normal, no s3, or vascular bruits LUNGS: clear to auscultatio n ABDOMEN: bowel sounds normal, no ascites, no organomegaly, no mass, overweight NEUROLOGIC: alert and oriented, cranial nerves 2-12 grossly intact, deep tendon reflexes 2+ symmetrical, motor strength normal upper and lower extremities, sensory exam intact SKIN: 2 erythematous areas above the nipple of the left breast, each is oblong with ruptured vesicle, no other abnormalities PERIPHERAL PULSES: normal BREASTS: Not examined MUSCULOSKELETAL: extremities unremark able, no clubbing, cyanosis or edema LYMPH NODES: no enlarged lymph no juwan,spleen normal RECTAL EXAM: not examined PSYCH: alert, oriented ORAL CAVITY: normal, unremarkable
--- OUTSIDE RECORDS SUMMARY | 2024-12-29 13:16 | XMS_ITS ---
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 Referral Priority Routine REASON FOR VISIT Annual exam Medications Medication SIG (Take, Route, Frequency, Duration) Notes Start Date End Date Status Multivitamin Orally Active Social History Tobacco Use: Social History Observation Description Date Details (start date - stop date) Former Smoker NA - NA Sex Assigned At : Social History Observation Description Sex Assigned At Female Tobacco Use/Smoking Question Answer Notes Patient is a former smoker How long has it been since you last smoked? > 10 years Additional Findings: Tobacco Non-User Ex-cigaret te smoker Tobacco Control (Standard) Question Answer Notes Tobacco [...] Problem Status W/U Status Risk Notes Problem [id number] Pain, joint, knee, right (M25.561) Active confirmed She will be referred back to orthopedic surgery for definitive diagnosis and treatment. Vital Signs Temperature 98.1 degrees Fahrenheit 10/26/19 25 Blood pressure systolic 138 mm Hg 10/26/19 25 Blood pressure diastolic 68 mm Hg 025 Heart Rate 72 /min 10/26/2024 Height 65 in 10/26/2024 Weight 160 lbs 10/26/2024 BMI 26.62 kg/m2 10/26/2024 Encounters Encounter Location Date Provider Diagnosis Yung Silva III, MD [address] [place] [address] [place] [address] 10/26/2024 Yung Silva Hearing loss H91.90 ; Pain, joint, knee, right M25.561 ; Screening mammogram, encounter for Z12.31 ; Overweight E66.3 ; Rosacea L71.9 ; Former smoker Z87.891 ; Allergic rhinitis, unspecified seasonality, unspecified trigger J30.9 and Gastroesophageal reflux disease with esophagitis, unspecified whether hemorrhage K21.00 Assessments Encounter Date Diagnosis (ICD Code) Assessment Notes Treat ment Notes Treatment Clinical Notes 10/26/2024 Hearing loss (ICD-10 - H91.90) She says her hearing loss is fairly stable. No change in her therapy was made. 10/26/2024 Pain, joint, knee, right (ICD-10 - M25.561) She will be referred back to orthopedic surgery for definitive diagnosis and treatment. 10/26/2024 Screening mammogram, encounter for (ICD-10 - Z12.31) We have scheduled her annual screening mammogram. 10/26/2024 Overweight (ICD-10 - E66.3) Her body mass index is 26. We discussed her diet and nutrition. We made a plan to lose weight at a rate of one half of a pound per week until the body mass index is normal. 10/26/2024 Rosacea (ICD-10 - L71.9) She has a prescription for metronidazole. There was no rosacea seen on today's examination. 10/26/2024 Former smoker (ICD-1 0 - Z87.891) She is highly motivated not to smoke. We elaborated a plan to prevent relapse in times of stress and illness. 10/26/2024 Allergic rhinitis, unspecified seasonality, unspecified trigger (ICD-10 - J30.9) She has had congestion and a cough for several months. The examination of her ears and throat is unremarkable. Her nares are normal. The cough is nonproductive. I have recommended loratadine and Flonase. 10/26/2024 Gastroesophageal reflux disease with esophagitis, unspecified whether hemorrhage (ICD-10 - K21.00) She has been referred back to orthopedics for definitive treatment of the right knee. Plan Of Treatment Medication Medication Name Sig Start Date Stop Date Notes Multivitamin Orally Pending Test Test Name Order Date PROFILE, FASTING (COMPREHENSIVE METABOLI C) 10/26/2024 CBC WITH AUTO DIFF 10/26/2024 Lipid Panel 10/26/2024 MM tomosynthesis screening BI 10/26/2024 Referrals Referral Date Details 10/26/2024 10/26/2024, Consult and Treat Hearing Loss, Speech and Hearing [facility] Next Appt Details Follow Up: 1 Year, In a year , Reason: Annual Exam, Annual check-up Provider Name:Yung Silva, 01/01/2025 10:45:00 AM, [address] [place] [address] [address], [place], [address], Provider Name:Yung Silva, 10/27/2025 02:00:00 PM, [address] [place] [address] [address], [place], [id number], Progress Notes * Tory SHELTON EDOB:1955 (68 yo F)Acc No.[id number]:10/26/2024 Progress Notes Patient:?Tory SHELTON Provider:?Yung Silva MD :1955???Age:68 Y???Sex:Female D ate:10/26/2024 Address:[address] [place], [id number] Subjective: * Chief Complaints: * ???Annual exam * HPI: ???Depression Screening:?PHQ-9?Little interest or pleasure in doing things?Not at all ?Feeling down, depressed, or hopeless?Not at all ?Trouble falling or staying asleep, or sleeping too much?Several days ?Feeling tired or having little energy?Not at all ?Poor appetite or overeating?Not at all ?Feeling bad about yourself or that you are a failure, or have let yourself or your family down?Not at all ?Trouble concentrating on things, such as reading the newspaper or watching television?Not at all ?Moving or speaking so slowly that other people could have noticed; or the opposite, being so fidgety or restless that you have been moving around a lot more than usual?Not at all ?Thoughts that you would be better off or of hurting yourself in some way?Not at all ?Total Score?1 ?Interpretation?Minimal Depression ???COVID-19 Screening:?minor crepitus right knee wo felix. ?Questions?Have you had any new onset fever, chills, cough, congestion, sore throat, shortness of breath, muscle aches??No ???Fall Risk Screening:?Fall History?Have you had any falls with injury in the past year??No ?Have you had two or more falls in the past year??No ?Fall Risk Assessment:?One fall without injury in the past year ???SDOH Questions:?SDOH Questions?In the past year have you been worried about losing your housing??No ?In the past year have you or any family members you live with been unable to get any of the following when it was really needed? Check all that apply:?None ???:? The patient, a 68-year-old female, presented with intermittent discomfort in her right knee. She reported that the pain had been bothering her on and off for a long time. She had previously undergone an X-ray which revealed lemj-tz-fspk contact in the knee. She had also undergone physical therapy which seemed to alleviate the pain somewhat. However, she reported that the pain does not occur all the time, which she found surprising given the [id number]-wr-[id number] diagnosis. She also reported a fall caused by her dog, which resulted in pain for a while, but this has since resolved. The patient also mentioned occasional sleep disturbances, where she wakes up and sometimes struggles to fall back asleep. She also reported that her hearing seems to be deteriorating, as she sometimes struggles to hear things clearly. * ROS:?General/Constitutional:?Admits?pain,?Right knee with weightbearing and walking, otherwise only normal aches and pains.?Chills?denies.?Fatigue?admits.?Fever?denies.?ENT:?Decreased hearing?in both ears.?Respiratory:?Cough?non-productive.?Cardiovascular:?Chest pain with exertion?denies.?Dyspnea on exertion?denies.?Shortness of breath?denies.?Gastrointestinal:?Constipation?occasional.?Decreased appetite?denies.?Diarrhea?denies.?Heartburn?controlled with medications.?Nausea?denies.?Rectal bleeding?denies.?Vomiting?denies.?Hematology:?bruising?denies.?petechiae?denies.?Swollen glands?none have been noted.?Genitourinary:?Frequent urination?denies.?Musculoskeletal:?Muscle aches?denies.?Painful joints?Right knee.?Sciatica?denies.?Weakness?denies.?Skin:?Itching?denies.?Rash?denies.?Skin lesion(s)?denies.?Neurologic:?Difficulty speaking?denies.?Dizziness?denies.?Headache?denies.?Low back pain?denies.?Psychiatric:?Depressed mood?denies.? * Medical History:? * Surgical History:?cholecyste ctomy 02/2010No history * Hospitalization/Major Diagno stic Procedure:? 1985EGD with ERCP and sphincterotomy, [facility], impacted stone, Dr. Yung Chavez 2009cholecystectomy, [facility], Dr. Charmaine Escalante 2009No history * Family History:?Father: dece ased 65 yrs, Coronary artery disease, diagnosed with CVD.?Mother: , Osteoporosis, breast cancer treated in [place] with chemotherapy with onset in her 80s., diagnosed with CVD, DM, HTN.?Paternal uncle: .?1 brother(s) , 2 sister(s) - [...] substance use disorder. * Social History:?Tobacco Use:?Tobacco Use/Smoking?Patient is a?former smoker ?How long has it been since you last smoked??> 10 years ?Additional Findings: Tobacco Non-User?Ex-cigarette smoker ?Tobacco Control (Standard)?Tobacco use:?Former smoker ?How long has it been since you last smoked??Greater than 10 years ?Additional Findings: Tobacco non-user?Ex-cigarette smoker ???Drugs/Alcohol:?Drugs?Have you used drugs other than those for medical reasons in the past 12 months??No ???Drug/Alcohol:?AUDIT-C (Standard)?Did you have a drink containing alcohol in the past year??No ?Points?0 ?Interpretation?Negative ???She was born and [place], [place]. She has a 33-year-old daughter, Amy, who is healthy and well. 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 She stopped smoking in 1990. * Medications:?TakingMultivita min Orally Medication List reviewed and reconciled with the patientTaking Multivitamin Orally Medication List reviewed and reconciled with the patient * Allergies:?Septra: rash - Al lergyAmoxicillin: hives - AllergySulfacetamide: hives - Allergyno[Allergies Verified] Objective: * Vitals:?Ht: 65, Wt:160, BMI: 26.62, BP:138/68, HR:72, Temp:98.1, Wt-k.57. * ???Past Orders: Lab:Complete Blood Count Aut o Diff * Collection Date 10/22/2024 10/21/2023 10/16/2022 Collection Time 09:45 AM 09:48 AM 09:50 AM Order Date 10/22/2024 10/21/2023 10/16/2022 White Blood Count 4.9 (Ref Range: 4.8-10.8 X10*3/uL) 5.9 (Ref Range: 4.8-10.8 X10*3/uL) 5.1 (Ref Range: 4.8-10.8 X10*3/uL) Red Blood Count 4.47 (Ref Range: 4.20-5.50 X10*6/uL) 4.38 (Ref Range: 4.20-5.50 X10*6/uL) 4.33 (Ref Range: 4.20-5.50 X10*6/uL) Hemoglobin 13.6 (Ref Range: 12.0-16.0 g/dl) 13.9 (Ref Range: 12.0-16.0 g/dl) 13.5 (Ref Range: 12.0-16.0 g/dl) Hematocrit 42.5 (Ref Range: 37.0-47.0 %) 42.0 (Ref Range: 37.0-47.0 %) 40.9 (Ref Range: 37.0-47.0 %) Mean Corpuscular Volume 95.1 (Ref Range: 80.0-98.0 fL) 95.9 (Ref Range: 80.0-98.0 fL) 94.5 (Ref Range: 80.0-98.0 fL) Mean Corpuscular Hemoglobin 30.4 (Ref Range: 27.0-33.0 pg) 31.7 (Ref Range: 27.0-33.0 pg) 31.2 (Ref Range: 27.0-33.0 pg) Mean Corpuscular HGB Conc 32.0 (Ref Range: 31.0-35.0 g/dl) 33.1 (Ref Range: 31.0-35.0 g/dl) 33.0 (Ref Range: 31.0-35.0 g/dl) Red Cell Distribution Width 14.0 (Ref Range: 11.0-16.0 %) 13.6 (Ref Range: 11.0-16.0 %) 13.8 (Ref Range: 11.0-16.0 %) Platelet Count 266 (Ref Range: 160-400 X10*3/uL) 266 (Ref Range: 160-400 X10*3/uL) 254 (Ref Range: 160-400 X10*3/uL) Mean Platelet Volume 9.9 (Ref Range: 9.4-12.3 fL) 11.0 (Ref Range: 9.4-12.3 fL) 10.3 (Ref Range: 9.4-12.3 fL) Neutrophils Percent Auto 51.0 (Ref Range: 45-73 %) 52.3 (Ref Range: 45-73 %) 52.3 (Ref Range: 45-73 %) Imm Gran Pct Auto 0.2 (Ref Range: 0.0-0.4 %) 0.3 (Ref Range: 0.0-0.4 %) 0.4 (Ref Range: 0.0-0.4 %) Lymphocytes Percent Auto 36.1 (Ref Range: 20-40 %) 38.4 (Ref Range: 20-40 %) 37.4 (Ref Range: 20-40 %) Monocytes Percent Auto 7.6 (Ref Range: 2-11 %) 5.9 (Ref Range: 2-11 %) 5.6 (Ref Range: 2-11 %) Eosinophils Percent Auto 4.3?H (Ref Range: 0-4 %) 2.4 (Ref Range: 0-4 %) 3.5 (Ref Range: 0-4 %) Basophils Percent Auto 0.8 (Ref Range: 0-2 %) 0.7 (Ref Range: 0-2 %) 0.8 (Ref Range: 0-2 %) NRBC Pct Auto 0.0 (Ref Range: 0.0-0.2 /100WBC) 0.0 (Ref Range: 0.0-0.2 /100WBC) 0.0 (Ref Range: 0.0-0.2 /100WBC) Neutrophils Absolute Auto 2.5 (Ref Range: 2.0-8.3 x10*3/uL) 3.1 (Ref Range: 2.0-8.3 x10*3/uL) 2.7 (Ref Range: 2.0-8.3 x10*3/uL) Imm Gran Abs Auto 0.01 (Ref Range: 0.00-0.03 X10*3/uL) 0.02 (Ref Range: 0.00-0.03 X10*3/uL) 0.02 (Ref Range: 0.00-0.03 X10*3/uL) Lymphocytes Absolute Auto 1.8 (Ref Range: 1.2-4.9 X10*3/uL) 2.3 (Ref Range: 1.2-4.9 X10*3/uL) 1.9 (Ref Range: 1.2-4.9 X10*3/uL) Monocytes Absolute Auto 0.4 (Ref Range: 0.1-1.2 X10*3/uL) 0.4 (Ref Range: 0.1-1.2 X10*3/uL) 0.3 (Ref Range: 0.1-1.2 X10*3/uL) Eosinophils Absolute Auto 0.2 (Ref Range: 0.0-0.4 X10*3/uL) 0.1 (Ref Range: 0.0-0.4 X10*3/uL) 0.2 (Ref Range: 0.0-0.4 X10*3/uL) Basophils Absolute Auto 0.0 (Ref Range: 0.0-0.2 X10*3/uL) 0.0 (Ref Range: 0.0-0.2 X10*3/uL) 0.0 (Ref Range: 0.0-0.2 X10*3/uL) NRBC Abs Auto 0.000 (Ref Range: 0.0-0.012 X10*3/uL) 0.000 (Ref Range: 0.0-0.012 X10*3/uL) 0.000 (Ref Range: 0.0-0.012 X10*3/uL) * Lab:Lipid Panel * Collection Date 10/22/2024 10/21/2023 10/16/2022 Collection Time 09:45 AM 09:45 AM 09:50 AM Order Date 10/22/2024 10/21/2023 10/16/2022 Triglycerides 94 (Ref Range: <150 mg/dL) 84 (Ref Range: <150 mg/dL) 101 (Ref Range: mg/dL) Cholesterol 192 (Ref Range: <200 mg/dL) 192 (Ref Range: <200 mg/dL) 198 (Ref Range: mg/dL) LDL Cholesterol Calculated 111?H (Ref Range: <100 mg/dL) 113?H (Ref Range: <100 mg/dL) 118 (Ref Range: mg/dl) HDL Cholesterol 63 (Ref Range: >40 mg/dL) 63 (Ref Range: >40 mg/dL) 60 (Ref Range: mg/dL) * Lab:URINE DIP STICK * Collection Date 10/26/2024 10/23/2023 10/17/2022 Collection Time 02:45 PM Order Date 10/26/2024 10/23/2023 10/17/2022 Result: normal SG 1.010 (Ref Range: 1.005 - 1.025) 1.015 (Ref Range: 1.005 - 1.025) 1.020 pH 6.0 (Ref Range: 5.0 - 9.0) 5.0 (Ref Range: 5.0 - 9.0) 5.0 LINDSEY Negative (Ref Range: Negative -) neg (Ref Range: Negative -) Neg NIT Negative (Ref Range: Negative -) neg (Ref Range: Negative -) Neg PRO 15 (Ref Range: Negative - Trace) trace (Ref Range: Negative - Trace) Neg GLU Negative (Ref Range: Negative -) neg (Ref Range: Negative -) Neg KET Negative (Ref Range: Negative -) neg (Ref Range: Negative -) Neg UBG 0.2 (Ref Range: 0.1 - 1.8) 0.2 (Ref Range: 0.1 - 1.8) 0.2 RUDY Negative (Ref Range: 0.2 - 1.3) beg (Ref Range: 0.2 - 1.3) Neg BLD Negative (Ref Range: Negative -) neg (Ref Range: Negative -) Neg Menstrating NR No No * Examination: ???General Examination: ?GENERAL APPEARANCE:?pleasant, well nourished, well developed, in no acute distress, calm and relaxed, overweight, woman.?HEAD:?atraumatic, normocephalic.?EYES:?eomi, perrla, anicteric, conjugate.?EARS:?normal.?NOSE:?septum intact.?ORAL CAVITY:?normal, unremarkable.?NECK/THYROID:?no jugular venous distention, no carotid bruit, thyroid normal.?LYMPH NODES:?no enlarged lymph nodes,spleen normal.?SKIN:?no suspicious lesions, anicteric.?HEART:?no clicks, gallops, murmurs, or rubs, regular rhythm, S1, S2 normal, no s3, or vascular bruits.?LUNGS:?clear to auscultation .?BREASTS:?no masses palpable bilaterally.?ABDOMEN:?bowel sounds normal, no ascites, no organomegaly, no mass, overweight, Healed right upper quadrant scars.?RECTAL EXAM:?not examined.?MUSCULOSKELETAL:?extremities unremarkable, no clubbing, cyanosis or edema, Healed right upper quadrant scars.?PERIPHERAL PULSES:?normal.?NEUROLOGIC:?alert and oriented, cranial nerves 2-12 grossly intact, deep tendon reflexes 2+ symmetrical, motor strength normal upper and lower extremities, sensory exam intact.?PSYCH:?alert, oriented.? Assessment: * Assessment: 1.?Pain, joint, knee, right - M25.561 (Primary)???Notes :She will be referred back to orthopedic surgery for definitive diagnosis and treatment.???2.?Hearing loss - H91.90???Notes :She says her hearing loss is fairly stable.? No change in her therapy was made.???3.?Screening mammogram, encounter for - ???Notes :We have scheduled her annual screening mammogram.???4.?Overweight - E66.3???Notes :Her body mass index is 26.? We discussed her diet and nutrition.? We made a plan to lose weight at a rate of one half of a pound per week until the body mass index is normal.???5.?Rosacea - L71.9???Notes :She has a prescription for metronidazole. There was no rosacea seen on today's examination.???6.?Former smoker - Z87.891???Notes :She is highly motivated not to smoke. We elaborated a plan to prevent relapse in times of stress and illness.???7.?Allergic rhinitis, unspecified seasonality, unspecified trigger - J30.9???Notes :She has had congestion and a cough for several months. The examination of her ears and throat is unremarkable. Her nares are normal. The cough is nonproductive. I have recommended loratadine and Flonase.???8.?Gastroesophageal reflux disease with esophagitis, unspecified whether hemorrhage - K21.00???Notes :She has been referred back to orthopedics for definitive treatment of the right knee.??? Plan: * Treatment: 2.?Screening mammogram, enco unter for?Imaging: MM tomosynthesis screening BI 3.?Overweight?LAB: PROFILE, FASTING (COMPREHENSIVE METABOLIC) ?LAB: CBC WITH AUTO DIFF ?LAB: Lipid Panel 4.?Others? Continue Multivitamin, Orally.?? * Labs:? * ?Lab: URINE DIP STICK (C ollection Date & Time - 10/26/2024) ? Value Reference Range ?SG 1.010 1.005 - 1.025 * ?pH 6.0 5.0 - 9.0 * ?LINDSEY Negative Negative - * ?NIT Negative Negative - * ?PRO 15 Negative - Trac e * ?GLU Negative Negative - * ?KET Negative Negative - * ?UBG 0.2 0.1 - 1.8 * ?RUDY Negative 0.2 - 1.3 * ?BLD Negative Negative - * Procedure Codes:?11893 URINE -NO MICRO * Preventive Medicine:? ??Counseling:?Care goal follow-up plan:?Counseling for abnormal BMI given?Yes ?Above Normal BMI Follow-up?Exercise promotion: strength training, Exercise promotion: stretching ?Smoking/Tobacco Use?Patient counseled on the dangers of tobacco use and urged to quit.?10/26/2024 * Follow Up:?1 Year, In a year (Reason: Annual Exam, Annual check-up) * Images: * Sign off status: Completed true * Provider:?Yung Silva MD Date:?10/01 Generated for Fadi smith/Hilda/eTransmitting on:?12/29/2024 01:16 PM EDT History and Physical Notes * HPI (History of Present Illness) Category Sub-Category Detail Notes Depression Screening PHQ-9 Little inte rest or pleasure in doing things: Not at all Feeling down, depressed, or hopeless: No t at all Trouble falling or staying asleep, or sl eeping too much: Several days Feeling tired or having little energy: N ot at all Poor appetite or overeating: Not at all Feeling bad about yourself o r that you are a failure, or have let yourself or your family down: Not at all Trouble concentrating on thi ngs, such as reading the newspaper or watching television: Not at all Moving or speaking so slowly that other people could have noticed; or the opposite, being so fidgety or restless that you have been moving around a lot more than usual: Not at all Thoughts that you would be b baylee off or of hurting yourself in some way: Not at all Total Score: 1 Interpretation: Minimal Depression Fall Risk Screening Fall History Have you had any falls with injury in the past year?: No Have you had two or more falls in the year?: No Fall Risk Assessment:: One fall without injury in the past year COVID-19 Screening Questions Have you had any new onset fever, chills, cough, congestion, sore throat, shortness of breath, muscle aches?: No SDOH Questions SDOH Questions In the past year have you been worried about losing your housing?: No In the past year have you or any family members you live with been unable to get any of the following when it was really needed? Check all that apply:: None Examination Category Sub-Category Detail Notes General Examination GENERAL APPEARANCE: pleasant , well nourished, well developed, in no acute distress, calm and relaxed, overweight, woman HEAD: atraumatic, normocep halic EYES: eomi, perrla, anicte luisa, conjugate EARS: normal NOSE: septum intact NECK/THYROID: no jugular venous di stention, no carotid bruit, thyroid normal HEART: no clicks, gallops, murmurs, or rubs, regular rhythm, S1, S2 normal, no s3, or vascular bruits LUNGS: clear to auscultatio n ABDOMEN: bowel sounds normal, no ascites, no organomegaly, no mass, overweight, Healed right upper quadrant scars NEUROLOGIC: alert and oriented, cranial nerves 2-12 grossly intact, deep tendon reflexes 2+ symmetrical, motor strength normal upper and lower extremities, sensory exam intact SKIN: no suspicious lesion s, anicteric PERIPHERAL PULSES: normal BREASTS: no masses palpable b ilaterally MUSCULOSKELETAL: extremities unremark able, no clubbing, cyanosis or edema, Healed right upper quadrant scars LYMPH NODES: no enlarged lymph no juwan,spleen normal RECTAL EXAM: not examined PSYCH: alert, oriented ORAL CAVITY: normal, unremarkable Consultation Request Notes Referral Date Referring Provider Referred Provider Not es 10/26/[address] Silva [facility], Speech and Hearing Consult and Treat Hearing Loss
== END 2024-12-29 11:01 | disposition home or self-care (01) ==
LOC: HO.SH 11:00
PROVIDERS: Visit Provider Internal Medicine Medical Oncology
DX: Z01.118 Encounter for examination of ears and hearing with other abnormal findings (principal); H90.12 Conductive hearing loss, unilateral, left ear, with unrestricted hearing on the contralateral side
CPT/HCPCS: 92557; 92567

== ENCOUNTER 2025-01-28 13:18 | Outpatient (REF) | payer MEDICARE, SELFPAY | END 2025-01-28 13:19 | disposition home or self-care (01) | LOC: HO.MAMMO 13:18 | PROVIDERS: PCP Internal Medicine Medical Oncology; Visit Provider Internal Medicine Medical Oncology | DX: Z13.89 Encounter for screening for other disorder (principal) ==

== ENCOUNTER 2025-03-23 12:34 | Outpatient (REF) | payer MEDICARE, SELFPAY ==
--- OUTSIDE RECORDS SUMMARY | 2025-03-23 14:05 | XMS_ITS | Patient Health Record ---
Author Organization Yung Silva III, MD Address [address] [place] [address] Care Team Providers Care System Configuration Specialist Name Role Phone Yung Silva Primary Care Provider [phone] Allergies Allergen (clinical drug ingredient) Drug/Non Drug [...] 0.2 - 1.3 BLD Negative Negative - Complete Blood Count Auto Di ff Reviewed date:10/25/2024 04:49:06 PM Interpretation: Performing Lab:[facility], [address] [place] [address] Notes/Report: White Blood Count 4.9 4.8-10.8 X10*3/uL [...] 0.0-0.2 /100WBC Neutrophils Absolute Auto 2.5 2.0-8.3 x10*3/u L Imm Gran Abs Auto 0.01 0.00-0.03 X10*3/uL Lymphocytes Absolute Auto 1.8 1.2-4.9 X10*3/u L Monocytes Absolute Auto 0.4 0.1-1.2 X10*3/uL Eosinophils Absolute Auto 0.2 0.0-0.4 X10*3/u L Basophils Absolute Auto 0.0 0.0-0.2 X10*3/uL NRBC Abs Auto 0.000 0.0-0.012 X10*3/uL Lipid Panel Reviewed date:10/25/2024 04:49:06 PM Interpretation: Performing Lab:[facility], [address] [place] [address] Notes/Report: Triglycerides 94 <150 mg/dL Desirable Triglyceride: [...] Provider Speciality Internal M edicine Referred Provider [facility] er, Speech and Hearing Referred Provider Specialty Unknown General Notes D, Radha 10/27/2024 04:06:13 PM > Referral and progress note faxed. Referral Priority Routine Referral Appointment Date 12/29/2024 Medications Medication SIG (Take, Route, Fr equency, Duration) Notes Start Date End Date Status Multivitamin Orally Active valACYclovir HCl 1 GM 1 tablet Orally th ree times a day 2024 Active Immunizations Vaccine Route Administration Date Status [...] Problem Status W/U Status Risk Notes Problem 7980789 Former smoker (Z87.891) Active confirmed She is highly motivated not to smoke. We elaborated a plan to prevent relapse in times of stress and illness. Problem Overweight (359273071) Overweight (E66.3) Active confirmed Her body mass index is 26. We discussed her diet and nutrition. We made a plan to lose weight at a rate of one half of a pound per week until the body mass index is normal. Problem 50572380 Allergy to sulfa drugs (Z88.2) Active confirmed Problem 562321255 Rosacea (L71.9) Active confirmed She has a prescription for metronidazole. There was no rosacea seen on today's examination. Problem 84009846 Penicillin allergy (Z88.0) Active confirmed Problem Hearing loss (21610875) Hearing loss (H91.90) Active confirmed She says her hearing loss is fairly stable. No change in her therapy was made. Problem 066662689 History of cholecystectomy (Z90.49) Active confirmed Problem 335749377 Seasonal allergies (J30.2) Active confirmed She will continue on current therapy without change. Problem 912840962 Urinary frequency (R35.0) Active confirmed The urine culture showed 10,000-50,000 mixed anthony. Her frequency is improving without any antibiotic. She will be observed. Problem 211409336 GERD with esophagitis (K21.0) Active confirmed Her reflux symptoms are well-controlled with jbxo-rtb-abjemy r liquid antacids and omeprazole. Problem Allergic rhinitis (60909137) Allergic rhinitis, unspecified seasonality, unspecified trigger (J30.9) Active confirmed She has had congestion and a cough for several months. The examination of her ears and throat is unremarkable. Her nares are normal. The cough is nonproductive. I have recommended loratadine and Flonase. Problem Postmenopausal state (97425653) Post-menopause (Z78.0) Active confirmed We discussed maintenance of bone density in the postmenopausal state today. Problem Gastroesophageal reflux disease with esophagitis (disorder) (759551336) Gastroesophageal reflux disease with esophagitis, unspecified whether hemorrhage (K21.00) Active confirmed She has been referred back to orthopedics for definitive treatment of the right knee. Problem 094093304429571 Pain, joint, knee, right (M25.561) Active confirmed She will be referred back to orthopedic surgery for definitive diagnosis and treatment. Vital Signs Heart Rate 76 /min 01/01/2025 Temperature 97.5 degrees Fahrenheit 01/01/2025 Blood pressure diastolic 66 mm Hg 01/01/2025 Height 65 in 01/01/2025 Blood pressure systolic 120 mm Hg 01/01/2025 Weight 158 lbs 01/01/2025 BMI 26.29 kg/m2 01/01/2025 Encounters Encounter Location Date Provider Diagnosis Yung Silva III, MD [address] [place] [address] [place] [address] 08/14/2024 Yung Silva GERD with esophagiti s K21.0 ; Urinary frequency R35.0 ; Former smoker Z87.891 ; Allergic rhinitis, unspecified seasonality, unspecified trigger J30.9 ; Rosacea L71.9 and Overweight E66.3 Yung Silva III, MD [address] [place] [address] [place] [address] 10/26/2024 Yung Silva Hearing loss H91.90 ; Pain, joint, knee, right M25.561 ; Screening mammogram, encounter for Z12.31 ; Overweight E66.3 ; Rosacea L71.9 ; Former smoker Z87.891 ; Allergic rhinitis, unspecified seasonality, unspecified trigger J30.9 and Gastroesophageal reflux disease with esophagitis, unspecified whether hemorrhage K21.00 Yung Silva III, MD [address] [place] [address] [place] [address] 2024 Yung Silva Herpes zoster withou t complication B02.9 ; Seasonal allergies J30.2 ; Allergic rhinitis, unspecified seasonality, unspecified trigger J30.9 ; Rosacea L71.9 ; Overweight E66.3 ; Post-menopause Z78.0 and Gastroesophageal reflux disease with esophagitis, unspecified whether hemorrhage K21.00 Yung Silva III, MD [address] [place] [address] [place] [address] 01/01/2025 Yung Silva Herpes zoster withou t complication B02.9 ; Overweight E66.3 ; Allergic rhinitis, unspecified seasonality, unspecified trigger J30.9 ; Rosacea L71.9 ; Former smoker Z87.891 and GERD with esophagitis K21.0 Yung Silva III, MD [address] [place] [address] [address] [place] [address] 06/16/2024 Yung Silva III, MD [address] [place] [address] [address] [place] [address] 06/16/2024 Yung Silva III, MD [address] [place] [address] [address] [place] [address] 08/12/2024 Yung Silva UTI symptoms R39.9 Assessments Encounter Date Diagnosis (ICD Code) Assessment Notes T reatment Notes Treatment Clinical Notes 08/14/2024 Urinary frequency (ICD-10 - R35.0) The urine culture showed 10,000-50,000 mixed anthony. Her frequency is improving without any antibiotic. She will be observed. 08/14/2024 GERD with esophagiti s (ICD-10 - K21.0) Her reflux symptoms are well-controlled with fhvo-jpz-iecuuua liquid antacids and omeprazole. 10/26/2024 Hearing loss [...] will continue on current therapy without change. 01/01/2025 Overweight (ICD-10 - E66.3) Her body mass index is 26. We discussed her diet and nutrition. We made a plan to lose weight at a rate of one half of a pound per week until the body mass index is normal. 01/01/2025 Herpes zoster withou t complication (ICD-10 - B02.9) The small area of vesicles on the left brreast Is almost completely resolved 08/12/2024 UTI symptoms (ICD-10 - R39.9) 08/14/2024 [...] nonproductive. I have recommended loratadine and Flonase. 01/01/2025 Allergic rhinitis, unspecified seasonality, unspecified trigger (ICD-10 - J30.9) 08/14/2024 Allergic rhinitis, unspecified seasonality, unspecified trigger [...] was no rosacea seen on today's examination. 01/01/2025 Rosacea (ICD-10 - L71.9) She has a [...] until the body mass index is normal. 01/01/2025 Former smoker (ICD-1 0 - Z87.891) She is highly motivated not to smoke. We elaborated a plan to prevent relapse in times of stress and illness. 08/14/2024 Overweight (ICD-10 - E66.3) She is [...] bone density in the postmenopausal state today. 01/01/2025 GERD with esophagiti s (ICD-10 - K21.0) Her reflux symptoms are well-controlled with yvra-hic-nqtsqsp liquid antacids and omeprazole. 10/26/2024 Allergic rhinitis, unspecified seasonality, unspecified trigger [...] STICK 10/11/2021 PROFILE, FASTING (COMPREHENSIVE METABOLI C) 10/11/2021 PROFILE, FASTING (COMPREHENSIVE METABOLI C) 10/28/2019 PROFILE, FASTING (COMPREHENSIVE METABOLI C) 09/26/2018 PROFILE, FASTING (COMPREHENSIVE METABOLI C) 10/26/2024 PROFILE, FASTING (COMPREHENSIVE METABOLI C) 10/24/2018 PROFILE, FASTING (COMPREHENSIVE METABOLI C) 10/23/2023 PROFILE, FASTING (COMPREHENSIVE METABOLI C) 10/17/2022 PROFILE, FASTING (COMPREHENSIVE METABOLI C) 10/04/2020 URIC ACID 09/26/2018 LIPID PANEL 10/17/2022 LIPID PANEL 10/04/2020 LIPID PANEL 10/11/2021 LIPID PANEL 10/28/2019 LIPID PANEL 10/24/2018 LIPID PANEL 09/26/2018 TSH (THYROID STIMULATING HORMONE) 2017 CBC w DIFF 09/26/2018 CBC w DIFF 10/17/2022 CBC w DIFF 10/04/2020 CBC w DIFF 10/11/2021 CBC w DIFF 10/28/2019 CBC w DIFF 10/24/2018 XR KNEE LT 4 VIEWS 10/28/2019 BONE DENSITY DEXA 10/04/2020 MAMMOGRAM DIGITAL BILATERAL SCREEN 10/23 MAMMOGRAM DIGITAL BILATERAL SCREEN 10/17 MAMMOGRAM DIGITAL BILATERAL SCREEN 10/11 MAMMOGRAM DIGITAL BILATERAL SCREEN 10/04 VITAMIN D 25-OH TOTAL 10/24/2018 VITAMIN D 25-OH TOTAL 09/26/2018 CBC WITH AUTO DIFF 10/26/2024 CBC WITH AUTO DIFF 10/23/2023 Lipid Panel 10/26/2024 Lipid Panel 10/23/2023 Urine Culture 08/12/2024 MM tomosynthesis screening BI 10/26/2024 Next Appt Details Provider Name:Yung Silva, 10/27/2025 02:00:00 PM, [address] [place] [address] , [place] [address], [place], [address], Insurance Providers Payer Name Payer Address Payer Phone Subscriber Number Group Number Insured Name Patient Relationship to Insured Coverage Start Date Coverage End Date MEDICARE NGS [address] [place] [address] [id number] Tory Ball Self - patient is the insured [employer] [address] [place], [place] [id number] Tory Ball Self - patient is the insured Medical (General) History Medical History History ICD Code Esophageal erosions K22.10 Gastritis, presence of bleed ing unspecified, unspecified chronicity, unspecified gastritis type K29.70 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 Charmaine Escalante 2009 EGD with ERCP and sphinctero stacy, [facility], impacted stone, Dr. Yung Chavez 2009 1985
== END 2025-03-23 12:35 | disposition home or self-care (01) ==
LOC: HO.MAMMO 12:34
PROVIDERS: Visit Provider Internal Medicine Medical Oncology
DX: Z12.31 Encounter for screening mammogram for malignant neoplasm of breast (principal)
CPT/HCPCS: 77063; 77067

== ENCOUNTER → 2025-03-23 12:45 | Outpatient (BNV) | payer MEDICARE, SELFPAY | PROVIDERS: Visit Provider Internal Medicine | DX: Z12.31 Encounter for screening mammogram for malignant neoplasm of breast (principal) | CPT/HCPCS: 77063; 77067 ==

== ENCOUNTER 2025-04-16 10:30 | Outpatient (REF) | payer MEDICARE, SELFPAY ==
--- NOTE | ~2025-04-16 | US_ITS ---
EXAMINATION: MM DIAGNOSTIC DIGITAL BREAST TOMOSYNTHESIS, RIGHT Limited right breast ultrasound. CLINICAL INFORMATION: Call back from screening for asymmetry in the lower right breast anterior depth on MLO view. COMPARISON: Mammography: [facility] on PACS. TECHNIQUE: Digital breast tomosynthesis is performed in both the craniocaudal and mediolateral oblique views along with computer-aided detection (CAD). Synthesized 2D images are generated from the tomosynthesis. FINDINGS: The breasts are heterogeneously dense, which may obscure small masses (ACR BI-RADS breast composition Category c). Asymmetry retroareolar region lower breast anterior depth on MLO view persists on additional imaging projections. No suspicious calcifications or other abnormal findings. Targeted color Doppler ultrasound scanning in the retroareolar region of the right breast for 5 2 9:00 demonstrates normal fibronodular breast tissue. There is no sonographic abnormal finding. US/US breast RT limited mamm only IMPRESSION: Asymmetry lower breast MLO view anterior depth without sonographic correlate. Recommend six-month follow-up mammography for further evaluation of stability. Probably benign. ASSESSMENT: BI-RADS BI-RADS 3 - Probably benign finding(s) - 6 month follow-up suggested RECOMMENDATION: 6 Month F/U Results were provided to the patient at time of visit by the technologist. This patient's information was entered into a reminder system with a target due date for their next mammogram. Electronically signed by: Jeannette Olson DO 04/16/2025 08:47 PM EDT
--- OUTSIDE RECORDS SUMMARY | 2025-04-16 10:55 | XMS_ITS | Patient Health Record ---
Author Organization Yung Silva III, MD Address [address] [address] Care Team Providers Care Phytochemistry Professor Name Role Phone Yung Silva Primary Care [...] ff Reviewed date:10/25/2024 04:49:06 PM Interpretation: Performing Lab:[facility], [address] [place] [address] Notes/Report: White Blood Count 4.9 4.8-10.8 X10*3/uL [...] Panel Reviewed date:10/25/2024 04:49:06 PM Interpretation: Performing Lab:[facility], [address] [place] [address] Notes/Report: Triglycerides 94 <150 mg/dL Desirable Triglyceride: [...] low results in patients with liver disease. MM tomosynthesis screening B I Reviewed date:04/13/2025 08:23:12 PM Interpretation: Performing Lab: Notes/Report: [facility] [address] [place] [address] [place] [address] Mammography Report Signed Patient: Tory Ball MR#: [id number] : 1955 Acct:[id number] Age/Sex: 69 / F ADM Date: 03/23/25 Loc: HO.MAMMO Attending Dr: Yung Silva MD Ordering Physician: Yung Silva MD Results: 0Incompl ete: Needs Additional Imaging Evaluation Date of Service: 03/23/25 Follow Up: Additional Imagi ng Procedure(s): MM tomosynthesis screening BI Accession Number(s): [id number] cc: Yung Silva MD EXAMINATION: MM SCREENING DIGITAL BREAST TOMOSYNTHESIS, BILATERAL CLINICAL INFORMATION: Screening. Asymptomatic. COMPARISON: Mammography: Comparison is made with available priors TECHNIQUE: Digital breast mammography with tomosynthesis is performed in both the craniocaudal and mediolateral oblique views along with computer-aided detection (CAD). FINDINGS: There are scattered areas of fibroglandular density (ACR BI-RADS breast composition Category b). Right: Asymmetry retroareolar region anterior depth on MLO view. No suspicious calcifications or other abnormal findings. Left: There are no significant masses, abnormal calcifications, or other abnormalities. MM/MM tomosynthesis screening BI IMPRESSION: Additional imaging is recommended ASSESSMENT: BI-RADS BI-RADS 0 - Incomplete: Needs additional Imaging. RECOMMENDATION: 1. Additional views of the right breast. 2. Targeted ultrasound if warranted after review of the additional views. 3. Radiology department staff will contact the patient for additional imaging. Additional Imaging required This examination should not preclude the clinical evaluation of a suspicious palpable abnormality. This patient's information was entered into a reminder system with a target due date for their next mammogram. Electronically signed by: Jeannette Olson DO 04/10/2025 02:51 PM EDT Dictated By: Jeannette Olson DO Signed By: <Electronically signed by Jeannette Olson DO in OV> 04/10/25 1451 DD/ 1250 TD/TT: 03/23/25 1300 Auto Mechanic: [facility] [address] [place] [address] [place] [address] Mammography Report Signed Patient: Tory Ball MR#: [id number] : 1955 Acct:[id number] Age/Sex: 69 / F ADM Date: 03/23/25 Loc: HO.MAMMO Attending Dr: Yung Silva MD Ordering Physician: Yung Silva MD Results: 0Incompl ete: Needs Additiona l Imaging Evaluation Date of Service: 03/23/25 Follow Up: Additional Imagi ng Procedure(s): MM tomosynthesis screening BI Accession Number(s): [id number] cc: Yung Silva MD EXAMINATION: MM SCREENING DIGITAL BREAST TOMOSYNTHESIS, BILATERAL CLINICAL INFORMATION: Screening. Asymptomatic. COMPARISON: Mammography: Compari son is made with available priors TECHNIQUE: Digital breast mammography with tomosynthesis is performed in both the craniocaudal and mediolateral oblique views along with computer-aided detection (CAD). FINDINGS: There are scattered areas of fibroglandular density (ACR BI-RADS breast composition Category b). Right: Asymmetry retroareol ar region anterior depth on MLO view. No suspicious calcifications or other abnormal findings. Left: There are no significant masses, abnormal calcifications, or other abnormalities. MM/MM tomosynthesis screening BI IMPRESSION: Additional imaging i s recommended ASSESSMENT: BI-RADS BI-RADS 0 - Incomplete: Needs additional Imaging. RECOMMENDATION: 1. Additional views of the right breast. 2. Targeted ultrasou nd if warranted after review of the additional views. 3. Radiology departm ent staff will contact the patient for additional imaging. Additional Imaging required This examination michelle uld not preclude the clinical evaluation of a suspicious palpable abnormality. This patient's information was entered into a reminder system with a target due date for their next mammogram. Electronically jhonny d by: Jeannette Olson DO 04/10/2025 02:51 PM EDT Dictated By: Jeannette Olson DO Signed By: <Electronically signed by Jeannette Olson DO in OV> 04/10/25 1451 DD/ 1250 TD/TT: 03/23/25 1300 Auto Mechanic: Reason For Referral Reason Consult and Treat Hearing Loss Diagnosis 1 Hearing loss (H91.90 ) Referral Organization Yung Silva III, MD Referring Provider First Name Yung Referring Provider Last Name Shira Referring Provider Speciality Internal M edicine Referred Provider [facility] er, Speech and Hearing Referred Provider [...] has it been since you last smoked? Santia ter than 10 years Additional Findings: Tobacco non-user Ex-cigaret te smoker AUDIT-C (Standard) Question Answer Notes Did you have a drink containing alcohol in the p ast year? No Points 0 Interpretation Negative Problems Problem Type SNOMED Code ICD Code Onset Dates Problem Status W/U Status Risk Notes Problem 1410872 Former smoker (Z87.891) Active confirmed She is highly motivated not to smoke. We elaborated a plan to prevent relapse in times of stress and illness. Problem Overweight (522408794) Overweight (E66.3) Active confirmed Her body mass index is 26. We discussed her diet and nutrition. We made a plan to lose weight at a rate of one half of a pound per week until the body mass index is normal. Problem 53653468 Allergy to sulfa drugs (Z88.2) Active confirmed Problem 393551837 Rosacea (L71.9) Active confirmed She has a prescription for metronidazole. There was no rosacea seen on today's examination. Problem 63895105 Penicillin allergy (Z88.0) Active confirmed Problem Hearing loss (94117813) Hearing loss (H91.90) Active confirmed She says her hearing loss is fairly stable. No change in her therapy was made. Problem 815729279 History of cholecystectomy (Z90.49) Active confirmed Problem 026806407 Seasonal allergies (J30.2) Active confirmed She will continue on current therapy without change. Problem 246640118 Urinary frequency (R35.0) Active confirmed The urine culture showed 10,000-50,000 mixed anthony. Her frequency is improving without any antibiotic. She will be observed. Problem 139251435 GERD with esophagitis (K21.0) Active confirmed Her reflux symptoms are well-controlled with kpqs-eai-oymazg r liquid antacids and omeprazole. Problem Allergic rhinitis (27682326) Allergic rhinitis, unspecified seasonality, unspecified trigger (J30.9) Active confirmed She has had congestion and a cough for several months. The examination of her ears and throat is unremarkable. Her nares are normal. The cough is nonproductive. I have recommended loratadine and Flonase. Problem Postmenopausal state (89252030) Post-menopause (Z78.0) Active confirmed We discussed maintenance of bone density in the postmenopausal state today. Problem Gastroesophageal reflux disease with esophagitis (disorder) (711391705) Gastroesophageal reflux disease with esophagitis, unspecified whether hemorrhage (K21.00) Active confirmed She has been referred back to orthopedics for definitive treatment of the right knee. Problem 842649161560548 Pain, joint, knee, right (M25.561) Active confirmed [...] Date Provider Diagnosis Yung Silva III, MD [address] [place] [address] [place] [address] 08/14/2024 Yung Silva GERD with esophagiti s K21.0 ; Urinary frequency R35.0 ; Former smoker Z87.891 ; Allergic rhinitis, unspecified seasonality, unspecified trigger J30.9 ; Rosacea L71.9 and Overweight E66.3 Yung Silva III, MD [address] [place] [address] [place] [address] 10/26/2024 Yung Silva Hearing loss H91.90 ; Pain, joint, knee, right M25.561 ; Screening mammogram, encounter for Z12.31 ; Overweight E66.3 ; Rosacea L71.9 ; Former smoker Z87.891 ; Allergic rhinitis, unspecified seasonality, unspecified trigger J30.9 and Gastroesophageal reflux disease with esophagitis, unspecified whether hemorrhage K21.00 Yung Silva III, MD [address] [place] [address] [place] [address] 2024 Yung Silva Herpes zoster withou t complication B02.9 ; Seasonal allergies J30.2 ; Allergic rhinitis, unspecified seasonality, unspecified trigger J30.9 ; Rosacea L71.9 ; Overweight E66.3 ; Post-menopause Z78.0 and Gastroesophageal reflux disease with esophagitis, unspecified whether hemorrhage K21.00 Yung Silva III, MD [address] [place] [address] [place] [address] 01/01/2025 Yung Silva Herpes zoster withou t complication B02.9 ; Overweight E66.3 ; Allergic rhinitis, unspecified seasonality, unspecified trigger J30.9 ; Rosacea L71.9 ; Former smoker Z87.891 and GERD with esophagitis K21.0 Yung Silva III, MD [address] [place] [address] [place] [address] 06/16/2024 Yung Silva III, MD [address] [place] [address] [place] [address] 06/16/2024 Yung Silva III, MD [address] [place] [address] [place] [address] 08/12/2024 Yung Silva UTI symptoms R39.9 Assessments Encounter Date Diagnosis (ICD Code) Assessment Notes T reatment Notes Treatment Clinical Notes 08/14/2024 Urinary frequency (ICD-10 - R35.0) The urine culture showed 10,000-50,000 mixed anthony. Her frequency is improving without any antibiotic. She will be observed. 08/14/2024 GERD with esophagiti s (ICD-10 - K21.0) Her reflux symptoms are well-controlled with dzxx-pvd-zslcxor liquid antacids and omeprazole. 10/26/2024 Hearing loss [...] K21.0) Her reflux symptoms are well-controlled with fihr-qba-eekjyrl liquid antacids and omeprazole. 10/26/2024 Allergic rhinitis, [...] Details Provider Name:Yung Silva, 10/27/2025 02:00:00 PM, [address] [facility] [facility] [address] [place], [place], [address], Insurance Providers Payer Name Payer Address Payer Phone Subscriber Number Group Number Insured Name Patient Relationship to Insured Coverage Start Date Coverage End Date MEDICARE NGS [address] [place] [phone] [id number] Tory Ball Self - patient is the insured [facility] [address] [place] [id number] BallTory Self - patient is the insured Medical (General) History Medical History History ICD Code Esophageal erosions K22.10 Gastritis, presence of bleed ing unspecified, unspecified chronicity, unspecified gastritis type K29.70 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 Charmaine Escalante 2009 EGD with ERCP and sphinctero stacy, [facility], impacted stone, Dr. Yung Chavez 2009 1984
--- OUTSIDE RECORDS SUMMARY | 2025-04-16 10:55 | XMS_ITS | Patient Health Record ---
Author Organization [facility] Address [address] [place] [address] Care Team Providers Care Scrubbing Machine Operator Name Role Phone Yung Silva MD Primary Care Provider Yung Pablo Unavailable [phone] Allergies Allergen (clinical drug ingredient) Drug/Non Drug [...] Problem Screening for malignant neoplasm of colon (818833252) Encounter for screening for malignant neoplasm of colon (Z12.11) Active confirmed Problem Pre-procedure evaluation check (444564727) Encounter for other preprocedural examination (Z01.818) Active confirmed Problem Diverticulosis of colon (885183536) Diverticulosis of colon (K57.30) Active confirmed Plan Of Treatment Future Test Test Name Order Date COLONOSCOPY 10/25/2011 COLONOSCOPY 03/15/2022 Insurance Providers Payer Name Payer Address Payer Phone Subscriber Number Group Number Insured Name Patient Relationship to Insured Coverage Start Date Coverage End Date [facility] [employer] [address] [place] [address] [phone] [id number] VIRY SHELTON Self - patient is the insured Medical (General) History Medical History History ICD Code Denies OK,DM,CVA,Lung disease,renal dise ase Neg. screening colonoscopy in 11/2011 ERCP with sphincterotomy and stone remov al after her CCY in 2009 EGD with gastritis and H.pylori with Dr. Escalante in 2009 Surgical History Surgery Date(Month/Year) Cholecystectomy with ERCP as above
== END 2025-04-16 10:31 | disposition home or self-care (01) ==
LOC: HO.MAMMO 10:30
PROVIDERS: PCP Internal Medicine Medical Oncology; Visit Provider Internal Medicine Medical Oncology
DX: N64.89 Other specified disorders of breast (principal)
CPT/HCPCS: 76642; 77061; 77065

== ENCOUNTER → 2025-04-16 10:30 | Outpatient (BNV) | payer MEDICARE, SELFPAY | PROVIDERS: PCP Internal Medicine Medical Oncology; Visit Provider Internal Medicine | DX: R92.8 Other abnormal and inconclusive findings on diagnostic imaging of breast (principal) | CPT/HCPCS: 76642; 77065; G0279 ==

== ENCOUNTER 2025-08-17 15:17 | Outpatient (AMB) | payer MEDICARE, SELFPAY ==
[2025-08-17 15:42] VITALS: BP 120/80; BMI 26.5
--- NOTE | 2025-08-17 15:42 | A.OFFVIS_ITS ---
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 Currently sexually active. Has some vaginal dryness, uses lubrication. Attempting to eat a healthy diet with calcium and vitamin D and stays active with exercise. Last pap smear; 2022, negative. Last mammogram; 2024. Colonoscopy is UTD. Family history of breast and colon cancer. [facility] Medical History Seasonal allergies Heart burn Surgical History History of ERCP Hx of colonoscopy Hx of dilation and curettage Hx of section Hx of cholecystectomy Family History Father Heart attack Mother Breast cancer, Onset Age: 85 Uterine cancer Maternal Aunt Breast cancer Maternal Aunt Colon cancer Social History Household Members: Spouse Housing: House Alcohol intake: never Patient Tobacco Use Status: Former Tobacco user Tobacco use type: Cigarette Sexual orientation: Straight/Heterosexual Gender identity: Female Female Reproductive History Menstrual Age of Menarche: 16 Total pregnancies: 1 Full term: 1 Number of Living Children: 1 Date of last pap smear: 02/28/23 (neg pap and hpv) Date of Mammogram: 03/23/25 ([facility] 0) History of abnormal mammogram: Yes (04/16/25 3) Review of Systems Const All systems reviewed & are unremarkable except as noted in HPI and below Reports as per HPI Eyes Reports no additional complaints ENT Reports no additional complaints Card Reports no additional complaints Resp Reports no additional complaints GI Reports as per HPI and Reports no additional complaints Reports as per HPI Musc Reports no additional complaints Skin/Breast Reports as per HPI Neuro Reports no additional complaints Psych Reports no additional complaints Endo Reports no additional complaints Yonny/Lymph Reports no additional complaints Aller/Immun Reports no additional complaints Physical Exam Vital Signs: Last Vital Signs BP 120/80 08/17/25 15:42 BMI result Body Mass Index 26.5 Const General: cooperative, healthy appearing, no acute distress, well developed and alert Orientation/consciousness: patient oriented x3 HEENT Head: Yes normal to inspection Eyes General: appearance normal, both eyes and all related structures Neck Neck: Yes normal visual inspection Thyroid: Thyroid normal Chest Chest palpation & inspection: normal inspection of the chest and other (no puckering, dimpling, peau de orange, retraction, discharge, masses) Breast/axilla inspection: normal inspection of the breasts Breast/axilla palpation: normal palpation of the breasts Resp Effort & Inspection: normal respiratory effort GI Inspection: Yes normal to inspection Palpation (GI): Soft to palpation Rectal Exam - Female: deferred General: Yes bladder normal to palpation External Female Exam: normal external appearance and normal appearance of the urethra Speculum Exam - Vagina: normal palpation and vagina atrophic Speculum Exam - Cervix: normal appearance of the cervix and normal palpation Bimanual exam- vagina & uterus: normal bimanual exam, normal palpation, uterine size normal, bladder normal to palpation, normal palpation and non-tender Bimanual Exam- Adnexa, other: no masses Skin General skin exam: no rashes or lesions noted Rashes: no rashes Neuro General: patient oriented x3 Cognition (Neuro): normal cognition Extrem General: Yes normal to inspection Psych Attitude: cooperative Thought process: Normal thought process present Assessment & Plan Assessment & Plan (1) Encounter for well woman exam with routine gynecological exam: Code(s): Z01.419 - Encounter for gynecological examination (general) (routine) without abnormal findings Category: Medical Plan Discussed: Current recommendations for pap smears per ASCCP guidelines. Breast awareness, periodic self breast exams and yearly mammogram. Maintain a healthy lifestyle, well balanced diet including Calcium 1,200 mg and Vitamin D 600 IU daily, and routine exercise. Replens moisturizer use. Contact the office with any postmenopausal bleeding. Patient verbalizes understanding and agrees to the plan of care. She was given opportunity to ask questions and all questions were answered to the best of my ability. RTO in 1 year for annual functional architect exam. This note is constructed using voice recognition software. While every effort has been made to ensure accuracy, neurophysiologist errors may have been included. Coding Level of Care Code Est Pt Prev Care >65y(17818) Diagnoses Encounter for well woman exam with routine gynecological exam Z01.419
== END 2025-08-17 16:25 | disposition home or self-care (01) ==
LOC: HO.HWS 15:17
PROVIDERS: PCP Internal Medicine Medical Oncology; Visit Provider Advanced Practice Midwife
DX: Z01.419 Encounter for gynecological examination (general) (routine) without abnormal findings (principal)
CPT/HCPCS: G0101

== ENCOUNTER → 2025-08-17 15:17 | Outpatient (BNVA) | payer MEDICARE, SELFPAY | PROVIDERS: PCP Internal Medicine Medical Oncology; Visit Provider Advanced Practice Midwife | DX: Z01.419 Encounter for gynecological examination (general) (routine) without abnormal findings (principal); Z80.3 Family history of malignant neoplasm of breast | CPT/HCPCS: G0101 ==